=== PATIENT | female | born 1955 | race Caucasian/White ===

== ENCOUNTER 2020-10-04 15:17 | Outpatient (REF) | payer OTHER, SELFPAY ==
--- NOTE | 2020-10-04 | MM_ITS ---
EXAMINATION: MM SCREENING DIGITAL BREAST TOMOSYNTHESIS, BILATERAL CLINICAL INFORMATION: Screening. Asymptomatic. Status post left breast lumpectomy. COMPARISON: Mammography: September 29, 2019 and studies dating back to May 03, 2012 TECHNIQUE: Digital breast tomosynthesis is performed in both the craniocaudal and mediolateral oblique views along with computer-aided detection (CAD). Synthesized 2D images are generated from the tomosynthesis. Right breast exaggerated craniocaudal view also performed. FINDINGS: The breasts are heterogeneously dense, which may obscure small masses (ACR BI-RADS breast composition Category c). There are no significant masses, abnormal calcifications, or other abnormalities. MM/MM tomosynthesis screening BI IMPRESSION: There are no significant changes from prior study. ASSESSMENT: BI-RADS 1: Negative RECOMMENDATION: Routine annual mammography screening. This patient's information was entered into a reminder system with a target due date for their next mammogram.
== END 2020-10-04 15:18 | disposition home or self-care (01) ==
LOC: HO.MAMMO 15:17
PROVIDERS: PCP Internal Medicine; Visit Provider Internal Medicine
DX: Z12.31 Encounter for screening mammogram for malignant neoplasm of breast (principal)
CPT/HCPCS: 77063; 77067

== ENCOUNTER 2020-11-05 06:35 | Outpatient (REF) | payer OTHER, SELFPAY ==
[2020-11-05 07:14] LABS: COVID-19 Test Negative (Negative)
== END 2020-11-05 06:36 | disposition home or self-care (01) ==
LOC: HO.EMPCOV 06:35
PROVIDERS: Visit Provider Internal Medicine
DX: Z20.828 Contact with and (suspected) exposure to other viral communicable diseases (principal)
CPT/HCPCS: 87635; C9803

== ENCOUNTER 2020-12-19 07:09 | Outpatient (REF) | payer OTHER, SELFPAY ==
[2020-12-19 07:26] LABS: COVID-19 Test Negative (Negative)
== END 2020-12-19 07:10 | disposition home or self-care (01) ==
LOC: HO.EMPCOV 07:09
PROVIDERS: Visit Provider Internal Medicine
DX: Z20.822 Contact with and (suspected) exposure to COVID-19 (principal)
CPT/HCPCS: 36415; 87635; C9803

== ENCOUNTER 2020-12-26 07:48 | Outpatient (REF) | payer OTHER, SELFPAY ==
[2020-12-26 08:07] LABS: COVID-19 Test Negative (Negative); IDNOW Serial# 55D5AD1C
== END 2020-12-26 07:49 | disposition home or self-care (01) ==
LOC: HO.EMPCOV 07:48
PROVIDERS: Visit Provider Internal Medicine
DX: Z20.822 Contact with and (suspected) exposure to COVID-19 (principal)
CPT/HCPCS: 36415; 87635; C9803

== ENCOUNTER 2021-01-25 11:53 | Outpatient (REF) | payer OTHER, SELFPAY ==
[2021-01-25 13:10] LABS: MANUAL DIFF FLAG NO
[2021-01-25 13:17] LABS: Basophils Absolute Auto 0.1 X10*3/uL (0.0-0.2); Basophils Percent Auto 0.8 % (0-2); Eosinophils Absolute Auto 0.6 X10*3/uL (0.0-0.4); Eosinophils Percent Auto 9.3 % (0-4); Hematocrit 37.7 % (37-47); Hemoglobin 12.4 g/dl (12.0-16.0); Imm Gran Abs Auto 0.02 X10*3/uL (0.00-0.03); Imm Gran Pct Auto 0.3 % (0.0-0.4); Lymphocytes Absolute Auto 1.7 X10*3/uL (1.2-4.9); Lymphocytes Percent Auto 27.1 % (20-40); Mean Corpuscular HGB Conc 32.9 g/dl (31.0-35.0); Mean Corpuscular Volume 91.1 fL (80-98); Mean Platelet Volume 10.5 fL (9.4-12.3); Monocytes Absolute Auto 0.6 X10*3/uL (0.1-1.2); Monocytes Percent Auto 9.5 % (2-11); Neutrophils Absolute Auto 3.2 X10*3/uL (2.0-8.3); Platelet Count 227 X10*3/uL (160-400); Red Blood Count 4.14 X10*6/uL (4.20-5.50); Red Cell Distribution Width 13.2 % (11.0-16.0); White Blood Count 6.1 X10*3/uL (4.8-10.8)
[2021-01-25 13:56] LABS: Free T4 (Free Thyroxine) 0.95 ng/dL (0.71-1.85); Thyroid Stimulating Hormone 1.87 uIU/mL (0.32-4.0)
== END 2021-01-25 11:54 | disposition home or self-care (01) ==
LOC: HO.LAB 11:53
PROVIDERS: PCP Internal Medicine; Visit Provider Internal Medicine
DX: D72.819 Decreased white blood cell count, unspecified (principal); E03.9 Hypothyroidism, unspecified
CPT/HCPCS: 36415; 84439; 84443; 85025

== ENCOUNTER 2021-03-07 15:00 | Outpatient (REF) | payer OTHER, SELFPAY ==
--- NOTE | ~2021-03-07 | MM_ITS ---
EXAMINATION: BONE DENSITOMETRY CLINICAL INDICATION: Screening for osteoporosis. COMPARISON: None (current study represents initial baseline exam). TECHNIQUE: Using a [employer] DXA System (software version: 13.1) manufactured by [employer], dual-energy x-ray absorptiometry was performed of the lumbar spine and left hip. The images are of good technical quality. Summary results are attached. FINDINGS: AP SPINE L1-L4: BMD 0.850 g/cm2, Z-score -1.1, T-score -2.7, osteoporosis. LEFT FEMUR, NECK: BMD 0.805 g/cm2, Z-score -0.2, T-score -1.7, osteopenia. LEFT FEMUR, TOTAL: BMD 0.878 g/cm2, Z-score 0.2, T-score -1.0, normal. IDENTIFIED RISK FACTORS: Height loss, calcium intake, family history (parental hip fracture), history of fracture (adult), menopause. HISTORY OF FRACTURE: Lower leg. MEDICATIONS: None listed. MM/XR DEXA axial skeleton IMPRESSION: 1. DIAGNOSIS: Osteoporosis based on the lowest T-score value of -2.7 in the lumbar spine applying World Health Organization criteria. 2. 10-YEAR FRACTURE RISK PREDICTION, FRAX: Major osteoporotic fracture (clinical spine, forearm, hip or shoulder) 17.4%. Hip fracture 1.1%. 3. Treatment Recommendations: NOF guidelines recommend consideration for treatment in postmenopausal women and men age 50 and older presenting with the following: -A hip or vertebral (clinical or morphometric) fracture. -T-score less than or equal to -2.5 at the femoral neck or spine after appropriate evaluation to exclude secondary causes. -Low bone mass at the hip or spine and a 10-year fracture probability by FRAX of greater than or equal to 3% for hip fracture or greater than or equal to 20% for major osteoporotic fracture based on the [place] adapted WHO algorithm. 4. Other Recommendations: All treatment decisions require clinical judgment and consideration of individual patient factors, including patient preferences, comorbidities, previous drug use, risk factors not captured in the FRAX model (e.g. frailty, falls, vitamin D deficiency, increased bone turnover, interval significant decline in bone density) and possible under or overestimation of fracture risk by FRAX. Additional medical evaluation for secondary cause of low bone mineral density may be appropriate. FUTURE SCAN RECOMMENDATION: People with diagnosed cases of osteoporosis or at high risk for fracture should have regular bone mineral density tests. For patients eligible for Medicare, routine testing is allowed once every 2 years. The testing frequency can be increased to one year for patients who have rapidly progressing disease, those who are receiving or discontinuing medical therapy to restore bone mass, or have additional risk factors.
== END 2021-03-07 15:01 | disposition home or self-care (01) ==
LOC: HO.MAMMO 15:00
PROVIDERS: PCP Internal Medicine; Visit Provider Internal Medicine
DX: Z13.820 Encounter for screening for osteoporosis (principal); M81.0 Age-related osteoporosis without current pathological fracture; Z78.0 Asymptomatic menopausal state; Z87.81 Personal history of (healed) traumatic fracture
CPT/HCPCS: 77080

== ENCOUNTER 2021-03-20 13:28 | Outpatient (REF) | payer OTHER, SELFPAY ==
--- NOTE | ~2021-03-20 | XR_ITS ---
EXAMINATION: XR HIP, RIGHT CLINICAL INFORMATION: RIGHT HIP PAIN, ASSESS OA COMPARISON: None TECHNIQUE: AP and frog-leg lateral views of the right hip. FINDINGS: The right proximal femur, there is cortical thickening with coarsened trabeculation, extending from the level of the femoral head to the proximal femoral shaft. There is associated increased varus angulation of the right hip. These findings are most consistent with patches disease. No fractures are identified. No focal osseous lesions. Right hip joint appears relatively well-preserved. No significant joint space narrowing. Mild osteoarthritis in the pubic symphysis. 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 No acute osseous abnormality or significant osteoarthritis at the right hip.
== END 2021-03-20 13:29 | disposition home or self-care (01) ==
LOC: HO.XRAY 13:28
PROVIDERS: PCP Internal Medicine; Visit Provider Internal Medicine
DX: M25.551 Pain in right hip (principal)
CPT/HCPCS: 73502

== ENCOUNTER 2021-03-27 06:59 | Outpatient (REF) | payer OTHER, SELFPAY ==
[2021-03-27 08:59] LABS: Alanine Aminotransferase 11 U/L (0-31); Albumin Level 4.5 g/dL (3.5-5.0); Alkaline Phosphatase 100 U/L (39-117); Anion Gap 14 (12-20); Aspartate Amino Transferase 17 U/L (5-31); Bilirubin Total 0.6 mg/dL (0.0-1.0); Blood Urea Nitrogen 19 mg/dL (9-16); C Reactive Protein 0.06 mg/dL (< or = 0.50); Calcium 9.7 mg/dL (8.4-10.2); Carbon Dioxide 26 mmol/L (22-29); Chloride 104 mmol/L (96-108); Cholesterol 228 mg/dL; Estimated Glomerular Filt Rate > 60; Glucose Fasting 100 mg/dL (60-99); HDL Cholesterol 81 mg/dL; LDL Cholesterol Calculated 137 mg/dl; Potassium 4.3 mmol/L (3.3-5.1); Sodium 140 mmol/L (135-145); Total Protein 7.4 g/dL (6.5-8.0); Triglycerides 54 mg/dL
[2021-03-27 09:19] LABS: Vitamin D 25-OH Total 18.9 ng/mL (>30)
== END 2021-03-27 07:00 | disposition home or self-care (01) ==
LOC: HO.LAB 06:59
PROVIDERS: PCP Internal Medicine; Visit Provider Internal Medicine
DX: E78.00 Pure hypercholesterolemia, unspecified (principal); S82.899D Other fracture of unspecified lower leg, subsequent encounter for closed fracture with routine healing; X58.XXXD Exposure to other specified factors, subsequent encounter
CPT/HCPCS: 36415; 80053; 80061; 82306; 82550; 86140

== ENCOUNTER → 2021-03-29 06:53 | Outpatient (REF) | payer OTHER, SELFPAY ==
--- NOTE | ~2021-03-29 | NM_ITS ---
EXAMINATION: NM BONE SCAN OF THE WHOLE BODY CLINICAL INFORMATION: Assess for Paget's disease. COMPARISON: Hip film dated 03/20/2020. TECHNIQUE: Multiple gamma scintillation camera images of the whole body were performed 2.5 hours following the intravenous administration of 22 mCi Tc-99m MDP. FINDINGS: In the head, unremarkable. In the thoracic cage and upper extremities, some uptake at the base of the thumb on the right and right breast, likely degenerative in nature. In the spine, mild uptake mid cervical spine posterior on the right may be degenerative. Thoracic uptake within normal limits. Lumbosacral spine uptake within normal limits. In the pelvis, intense uptake in the right femoral head medially and junction of the femoral head with femoral neck also showing intense uptake. Otherwise more [id number] uptake extends from the intertrochanteric region down to the distal femoral metadiaphysis. In the lower extremities, otherwise mild uptake in the right knee medially is likely degenerative and some mild uptake about the left ankle and left forefoot likely degenerative. No other definite bony abnormalities are noted. The urinary bladder and faint visualization of both kidneys are noted. NM/NM bone scan whole body IMPRESSION: Uptake in the right femur. Given the appearance on x-ray this would be consistent with Paget's disease. As described, uptake is very intense in the region of the medial femoral head and subcapital femoral neck. This could just represent more acute Paget's disease however fracture superimposed on weakened bone from Paget's disease would need to be considered. If further evaluation is warranted, recommend MR for definitive evaluation. Importantly, no other focus to suggest Paget's in any other bone is seen here. Other areas described are likely degenerative in nature.
[2021-03-29 08:26] LABS: Glucose Urine UA NEG (NEG); Leukocyte Esterase Urine NEG (NEG); Nitrite Urine NEG (NEG); Specific Gravity - Urine 1.025 (1.005-1.025); Urine Blood NEG (NEG); Urine Ketones NEG (NEG); Urine Protein NEG (NEG-TRACE)
[2021-03-29 08:31] LABS: Appearance Urine CLEAR; Color Urine YELLOW
== END ==
LOC: HO.NUCMED 06:53
PROVIDERS: PCP Internal Medicine; Visit Provider Internal Medicine
DX: M54.6 Pain in thoracic spine (principal); R23.2 Flushing; R93.89 Abnormal findings on diagnostic imaging of other specified body structures
CPT/HCPCS: 78306; 81003; 87086; A9503

== ENCOUNTER 2021-04-04 15:14 | Outpatient (REF) | payer OTHER, SELFPAY ==
--- NOTE | ~2021-04-04 | MR_ITS ---
EXAMINATION: MR HIP WITHOUT CONTRAST, RIGHT CLINICAL INFORMATION: Concern for fracture. Pagetoid disease. COMPARISON: Right hip radiograph dated March 20 2021. Bone scan dated March 29, 2021. TECHNIQUE: MRI of the right hip was obtained using routine sequences on a high-field strength magnet. FINDINGS: Bones/Cartilage: Pagetoid features of the bone are appreciated. The predominant signal intensity in the proximal femur is that of fat. There are interspersed areas of low T1 and high T2 signal in the femoral head which demonstrates a speckled appearance on T1 and T2-weighted imaging which may reflect active pagetoid disease. No definable fracture line is appreciated. The right hip cartilage appears preserved. No joint space narrowing is appreciated. The sacroiliac joints are within normal limits. Mild hypertrophic changes at the pubic symphysis are appreciated. No erosion or periosteal edema. Labrum: No labral tear is identified on this non-arthrographic study. Ligament/capsule: No capsular thickening. Visualized ligaments are intact. Tendons: The hamstring origins and tendon insertions are intact. Miscellaneous: No bursal fluid is seen. The muscles are normal in signal intensity and morphology. No intraperitoneal fluid collection is seen. Uterus is anteverted. No adnexal mass. Visualized small and large bowel are normal in caliber. No inguinal hernia. No pelvic or inguinal lymphadenopathy. MR/MR hip RT wo con IMPRESSION: Right hip: Pagetoid changes in the proximal femur are noted. Predominant signal of fat signal suggest long-standing disease there are interspersed areas of low T1 and high T2 signal particularly in the femoral head which demonstrates a speckled appearance suggesting active phase disease. No definable fracture Mild hypertrophic changes at the pubic symphysis.
== END 2021-04-04 15:15 | disposition home or self-care (01) ==
LOC: HO.MRI 15:14
PROVIDERS: Visit Provider Internal Medicine
DX: M88.9 Osteitis deformans of unspecified bone (principal)
CPT/HCPCS: 73721

== ENCOUNTER 2021-04-25 13:49 | Outpatient (REF) | payer OTHER, SELFPAY ==
--- NOTE | ~2021-04-25 | XR_ITS ---
EXAMINATION: XR HAND, RIGHT CLINICAL INFORMATION: Right hand pain COMPARISON: None TECHNIQUE: PA, lateral, and oblique views of the right hand. FINDINGS: There is mild loss of first carpal- metacarpal joint space with periarticular spurring. The PIP and DIP joint spaces are normal. The MCP joints are normal. There is no visible acute fracture, dislocation or bony erosive changes. XR/XR hand RT min 3V IMPRESSION: Degenerative changes PIP and DIP joints. No visible acute fracture, dislocation or subluxation seen.
== END 2021-04-25 13:50 | disposition home or self-care (01) ==
LOC: HO.XRAY 13:49
PROVIDERS: PCP Internal Medicine; Visit Provider Internal Medicine
DX: M79.641 Pain in right hand (principal)
CPT/HCPCS: 73130

== ENCOUNTER → 2021-05-09 12:55 | Outpatient (BNVA) | payer OTHER, SELFPAY | PROVIDERS: PCP Internal Medicine; Visit Provider Student in an Organized Health Care Education/Training Program ==

== ENCOUNTER → 2021-05-15 08:58 | Outpatient (BNVA) | payer OTHER, SELFPAY | PROVIDERS: PCP Internal Medicine; Visit Provider Orthopaedic Surgery ==

== ENCOUNTER 2021-06-14 06:17 | Outpatient (REF) | payer OTHER, SELFPAY ==
[2021-06-14 09:28] LABS: Alanine Aminotransferase 14 U/L (0-31); Albumin Level 4.8 g/dL (3.5-5.0); Alkaline Phosphatase 105 U/L (39-117); Anion Gap 14 (12-20); Aspartate Amino Transferase 20 U/L (5-31); Bilirubin Total 0.7 mg/dL (0.0-1.0); Blood Urea Nitrogen 12 mg/dL (9-16); Carbon Dioxide 28 mmol/L (22-29); Chloride 103 mmol/L (96-108); Estimated Glomerular Filt Rate > 60; Glucose Random 94 mg/dL (60-115); Phosphorus 3.8 mg/dL (2.7-4.5); Potassium 4.5 mmol/L (3.3-5.1); Sodium 140 mmol/L (135-145); Total Protein 7.7 g/dL (6.5-8.0)
[2021-06-14 09:39] LABS: Vitamin D 25-OH Total 31.2 ng/mL (>30)
[2021-06-18 17:52] LABS: Collagen Type I C-Telopeptide 712 pg/mL (see note)
[2021-06-19 18:51] LABS: N-Telopeptide 169 (see note); NTXCreaRU 103 mg/dL (20-275)
== END 2021-06-14 06:18 | disposition home or self-care (01) ==
LOC: HO.LAB 06:17
PROVIDERS: PCP Internal Medicine; Visit Provider Student in an Organized Health Care Education/Training Program
DX: M88.9 Osteitis deformans of unspecified bone (principal)
CPT/HCPCS: 36415; 80053; 82306; 82523; 84100

== ENCOUNTER 2021-06-21 12:22 | Outpatient (REF) | payer OTHER, SELFPAY | END 2021-06-21 12:23 | disposition home or self-care (01) | LOC: HO.MDS 12:22 | PROVIDERS: PCP Internal Medicine; Visit Provider Student in an Organized Health Care Education/Training Program | DX: M88.9 Osteitis deformans of unspecified bone (principal) | CPT/HCPCS: 96365; J3489 ==

== ENCOUNTER 2021-07-08 07:30 | Outpatient (REF) | payer OTHER, SELFPAY | END 2021-07-08 07:31 | disposition home or self-care (01) | LOC: HO.LAB 07:30 | PROVIDERS: Visit Provider Internal Medicine | DX: Z20.822 Contact with and (suspected) exposure to COVID-19 (principal) | CPT/HCPCS: C9803; U0003; U0005 ==

== ENCOUNTER 2021-07-09 12:44 | Outpatient (REF) | payer OTHER, SELFPAY ==
[2021-07-09 13:38] LABS: Influenza A PCR NEGATIVE (Negative); Influenza B PCR NEGATIVE (Negative); Resp Syncy Virus RNA Qual PCR NEGATIVE (Negative); SARS COV2 PCR INHOUSE NEGATIVE (Negative)
== END 2021-07-09 12:45 | disposition home or self-care (01) ==
LOC: HO.LAB 12:44
PROVIDERS: Visit Provider Internal Medicine
DX: Z20.822 Contact with and (suspected) exposure to COVID-19 (principal)
CPT/HCPCS: 0241U; 36415; C9803

== ENCOUNTER 2021-10-28 07:44 | Outpatient (REF) | payer OTHER, SELFPAY ==
--- NOTE | ~2021-10-28 | MM_ITS ---
EXAMINATION: MM SCREENING DIGITAL BREAST TOMOSYNTHESIS, BILATERAL CLINICAL INFORMATION: Screening. Asymptomatic. History left lumpectomy ([facility], [facility]) 2017. The lifetime risk of breast cancer based on the Tyrer-Cuzick Model is 42%. COMPARISON: Mammography: 10/04/2020, 09/29/2019, 09/17/2018 TECHNIQUE: Digital breast tomosynthesis is performed in both the craniocaudal and mediolateral oblique views along with computer-aided detection (CAD). Synthesized 2D images are generated from the tomosynthesis. FINDINGS: There are scattered areas of fibroglandular density (ACR BI-RADS breast composition Category b). Breast tissue composition borders on heterogeneously dense. There are no significant masses, abnormal calcifications, or other abnormalities. Parenchymal pattern is similar to prior studies. There there are minor shifting fibroglandular densities from year to year related to positioning. No developing density. Biopsy clip marker again noted posterior 4:00 left breast. No significant changes. MM/MM tomosynthesis screening BI IMPRESSION: No significant changes from prior exams. ASSESSMENT: BI-RADS 2: Benign RECOMMENDATION: Routine annual mammography screening. This patient's information was entered into a reminder system with a target due date for their next mammogram.
== END 2021-10-28 07:45 | disposition home or self-care (01) ==
LOC: HO.MAMMO 07:44
PROVIDERS: Visit Provider Internal Medicine
DX: Z12.31 Encounter for screening mammogram for malignant neoplasm of breast (principal)
CPT/HCPCS: 77063; 77067

== ENCOUNTER → 2021-12-23 10:56 | Outpatient (REF) | payer OTHER, SELFPAY ==
--- NOTE | ~2021-12-23 | NM_ITS ---
EXAMINATION: NM BONE SCAN OF THE WHOLE BODY CLINICAL INFORMATION: Right hip pain. Follow-up Paget's disease. COMPARISON: Bone scan 03/29/2021. TECHNIQUE: Multiple gamma scintillation camera images of the whole body were performed 3 hours following the intravenous administration of 22 mCi Tc-99m MDP. FINDINGS: In the head, no abnormal uptake seen. In the thoracic cage and upper extremities, no abnormal activity seen within the thoracic cage or the upper extremity. There is extravasation of isotope in the right elbow at the site of injection. In the spine, no abnormal uptake seen within the spine. In the pelvis, there is minimal activity seen within the right hip joint, significantly improved since 03/29/2021. No additional abnormal activity seen. In the lower extremities, unremarkable. No other definite bony abnormalities are noted. The urinary bladder and faint visualization of both kidneys are noted. NM/NM bone scan whole body IMPRESSION: Significant improvement in the hypermetabolic activity in the right head of the femur from previous exam 03/29/2021. There is now mild increased activity in the head of the right femur. The rest of the whole body bone scan is unremarkable.
== END ==
LOC: HO.NUCMED 10:56
PROVIDERS: Visit Provider Internal Medicine Rheumatology
DX: Q78.2 Osteopetrosis (principal)
CPT/HCPCS: 78306; A9503

== ENCOUNTER 2022-01-17 10:26 | Outpatient (REF) | payer OTHER, SELFPAY ==
--- NOTE | ~2022-01-17 | CT_ITS ---
EXAMINATION: CT ABDOMEN AND PELVIS WITHOUT CONTRAST CLINICAL INFORMATION: Left-sided abdominal pain. COMPARISON: None TECHNIQUE: Multidetector volumetric imaging was performed from the superior aspect of the liver through the pubic symphysis. Sagittal and coronal reformatted images were obtained on the technologist's workstation. This CT examination was performed using dose optimization techniques as appropriate, variously including the following: *Automated exposure control *Adjustment of mA and/or kV according to patient size (this includes techniques or standardized protocols for targeted exams where dose is matched to indication/reason for exam; i.e. extremities or head) *Use of iterative reconstruction technique DLP: 465 mGy-cm FINDINGS: LUNG BASES: The visualized lung bases are unremarkable. LIVER, GALLBLADDER, AND BILIARY TREE: The liver is normal in size, shape, and attenuation. No focal hepatic lesion or biliary ductal dilatation is present. The gallbladder is unremarkable with no evidence of radiopaque gallstones, gallbladder wall thickening, or obvious pericholecystic inflammatory changes. PANCREAS: Unremarkable. SPLEEN: Unremarkable. ADRENAL GLANDS: Unremarkable. KIDNEYS AND URETERS: The kidneys are normal in size, shape, and attenuation. No hydronephrosis, hydroureter, or calculi seen. No perinephric stranding. BLADDER: Unremarkable. GASTROINTESTINAL TRACT: There is scattered moderate stool and gas seen throughout the colon without any significant distention. The small-bowel loops are normal caliber. The appendix is not visualized. ABDOMINAL WALL: No significant hernia is appreciated. LYMPH NODES: Normal. VASCULAR: Unremarkable. PELVIC VISCERA: Unremarkable. OSSEOUS STRUCTURES: Unremarkable. CT/CT abdomen pelvis wo con IMPRESSION: Mild to moderate constipation. No obstruction or diverticula seen. No radiopaque urolith or hydroureteronephrosis. Fleischner guidelines were followed.
== END 2022-01-17 10:27 | disposition home or self-care (01) ==
LOC: HO.CT 10:26
PROVIDERS: PCP Internal Medicine; Visit Provider Internal Medicine
DX: R10.9 Unspecified abdominal pain (principal)
CPT/HCPCS: 74176

== ENCOUNTER 2022-09-25 09:08 | Outpatient (REF) | payer MEDICARE, SELFPAY ==
[2022-09-25 10:48] LABS: MANUAL DIFF FLAG NO
[2022-09-25 11:00] LABS: Basophils Absolute Auto 0.1 X10*3/uL (0.0-0.2); Basophils Percent Auto 1.1 % (0-2); Eosinophils Absolute Auto 0.3 X10*3/uL (0.0-0.4); Eosinophils Percent Auto 7.3 % (0-4); Hematocrit 38.3 % (37.0-47.0); Hemoglobin 12.8 g/dl (12.0-16.0); Imm Gran Abs Auto 0.01 X10*3/uL (0.00-0.03); Imm Gran Pct Auto 0.2 % (0.0-0.4); Lymphocytes Absolute Auto 1.4 X10*3/uL (1.2-4.9); Lymphocytes Percent Auto 31.7 % (20-40); Mean Corpuscular HGB Conc 33.4 g/dl (31.0-35.0); Mean Corpuscular Hemoglobin 30.7 pg (27.0-33.0); Mean Corpuscular Volume 91.8 fL (80.0-98.0); Mean Platelet Volume 10.2 fL (9.4-12.3); Monocytes Absolute Auto 0.4 X10*3/uL (0.1-1.2); Monocytes Percent Auto 8.9 % (2-11); Neutrophils Absolute Auto 2.2 x10*3/uL (2.0-8.3); Neutrophils Percent Auto 50.8 % (45-73); Platelet Count 207 X10*3/uL (160-400); Red Blood Count 4.17 X10*6/uL (4.20-5.50); Red Cell Distribution Width 12.9 % (11.0-16.0); White Blood Count 4.4 X10*3/uL (4.8-10.8)
[2022-09-25 11:46] LABS: Free T4 (Free Thyroxine) 0.98 ng/dL (0.71-1.85); Thyroid Stimulating Hormone 2.67 uIU/mL (0.32-4.0)
[2022-09-25 11:48] LABS: Alanine Aminotransferase 15 U/L (0-31); Albumin Level 4.6 g/dL (3.5-5.0); Alkaline Phosphatase 51 U/L (39-117); Anion Gap 17 (12-20); Aspartate Amino Transferase 23 U/L (5-31); Bilirubin Total 0.6 mg/dL (0.0-1.0); Blood Urea Nitrogen 12 mg/dL (9-16); Calcium 9.5 mg/dL (8.4-10.2); Carbon Dioxide 25 mmol/L (22-29); Chloride 102 mmol/L (96-108); Cholesterol 262 mg/dL; Estimated Glomerular Filt Rate > 60; Glucose Fasting 88 mg/dL (60-99); HDL Cholesterol 73 mg/dL; LDL Cholesterol Calculated 174 mg/dl; Magnesium 1.9 mg/dL (1.6-2.6); Potassium 4.2 mmol/L (3.3-5.1); Sodium 140 mmol/L (135-145); Total Protein 7.6 g/dL (6.5-8.0); Triglycerides 76 mg/dL
== END 2022-09-25 09:09 | disposition home or self-care (01) ==
LOC: HO.10HDL 09:08
PROVIDERS: Visit Provider Internal Medicine
DX: Z00.00 Encounter for general adult medical examination without abnormal findings (principal); E03.9 Hypothyroidism, unspecified
CPT/HCPCS: 36415; 80053; 80061; 83735; 84439; 84443; 85025

== ENCOUNTER 2022-10-30 07:28 | Outpatient (REF) | payer MEDICARE, SELFPAY ==
--- NOTE | ~2022-10-30 | MM_ITS ---
EXAMINATION: MM SCREENING DIGITAL BREAST TOMOSYNTHESIS, BILATERAL CLINICAL INFORMATION: Screening. Asymptomatic. The lifetime risk of breast cancer based on the Tyrer-Cuzick Model is 40%. Additional annual screening with breast MRI may be of benefit in women with a score of 20% or greater. COMPARISON: Mammography: October 28, 2021 and studies dating back to February 15, 2016 TECHNIQUE: Digital breast tomosynthesis is performed in both the craniocaudal and mediolateral oblique views along with computer-aided detection (CAD). Synthesized 2D images are generated from the tomosynthesis. FINDINGS: The breasts are heterogeneously dense, which may obscure small masses (ACR BI-RADS breast composition Category c). There are no significant masses, abnormal calcifications, or other abnormalities. MM/MM tomosynthesis screening BI IMPRESSION: No significant changes from prior exam. ASSESSMENT: BI-RADS 1: Negative RECOMMENDATION: Routine annual mammography screening. This patient's information was entered into a reminder system with a target due date for their next mammogram.
== END 2022-10-30 07:29 | disposition home or self-care (01) ==
LOC: HO.MAMMO 07:28
PROVIDERS: PCP Internal Medicine; Visit Provider Internal Medicine
DX: Z12.31 Encounter for screening mammogram for malignant neoplasm of breast (principal)
CPT/HCPCS: 77063; 77067

== ENCOUNTER 2023-12-25 09:37 | Outpatient (REF) | payer MEDICARE, SELFPAY ==
--- NOTE | ~2023-12-25 | MM_ITS ---
EXAMINATION: BONE DENSITOMETRY CLINICAL INDICATION: Age-related osteoporosis. COMPARISON: Baseline BD dated 03/07/2021. TECHNIQUE: Using a [employer] DXA System (software version: 13.1) manufactured by [employer], dual-energy x-ray absorptiometry was performed of the lumbar spine and left hip. The images are of good technical quality. Summary results are attached. FINDINGS: LEFT FEMUR, NECK: Current: BMD 0.835 g/cm2, Z-score 0.2, T-score -1.5, osteopenia. Baseline: BMD 0.805 g/cm2. LEFT FEMUR, TOTAL: Current: BMD 0.928 g/cm2, Z-score 0.7, T-score -0.6, normal, 5.7% increase from baseline (<5% change is not significant). Baseline: BMD 0.878 g/cm2. AP SPINE L1-L4: Current: BMD 0.867 g/cm2, Z-score -0.9, T-score -2.6, osteoporosis, 2.0% increase from baseline (<5% change is not significant). Baseline: BMD 0.850 g/cm2. IDENTIFIED RISK FACTORS: Family history (parent hip fracture), history of fracture (adult), low body weight, menopause, osteoporosis. HISTORY OF FRACTURE: Other. MEDICATIONS: Calcium, vitamin D, bisphosphonate. MM/XR DEXA axial skeleton IMPRESSION: 1. DIAGNOSIS: Osteoporosis based on the lowest T-score value of -2.6 in the lumbar spine applying World Health Organization criteria. 2. 10-YEAR FRACTURE RISK PREDICTION, FRAX: According to the guidelines, FRAX calculation should only be performed on patients in the osteopenia bone density category. Therefore, FRAX was not performed on this patient. 3. Treatment Recommendations: NOF guidelines recommend consideration for treatment in postmenopausal women and men age 50 and older presenting with the following: -A hip or vertebral (clinical or morphometric) fracture. -T-score less than or equal to -2.5 at the femoral neck or spine after appropriate evaluation to exclude secondary causes. -Low bone mass at the hip or spine and a 10-year fracture probability by FRAX of greater than or equal to 3% for hip fracture or greater than or equal to 20% for major osteoporotic fracture based on the [place] adapted WHO algorithm. 4. Other Recommendations: All treatment decisions require clinical judgment and consideration of individual patient factors, including patient preferences, comorbidities, previous drug use, risk factors not captured in the FRAX model (e.g. frailty, falls, vitamin D deficiency, increased bone turnover, interval significant decline in bone density) and possible under or overestimation of fracture risk by FRAX. Additional medical evaluation for secondary cause of low bone mineral density may be appropriate. FUTURE SCAN RECOMMENDATION: People with diagnosed cases of osteoporosis or at high risk for fracture should have regular bone mineral density tests. For patients eligible for Medicare, routine testing is allowed once every 2 years. The testing frequency can be increased to one year for patients who have rapidly progressing disease, those who are receiving or discontinuing medical therapy to restore bone mass, or have additional risk factors.
== END 2023-12-25 09:38 | disposition home or self-care (01) ==
LOC: HO.MAMMO 09:37
PROVIDERS: PCP Internal Medicine; Visit Provider Obstetrics & Gynecology Gynecology
DX: Z13.820 Encounter for screening for osteoporosis (principal); Z78.0 Asymptomatic menopausal state; M81.0 Age-related osteoporosis without current pathological fracture
CPT/HCPCS: 77080

== ENCOUNTER 2024-01-08 11:48 | Outpatient (REF) | payer MEDICARE, SELFPAY ==
--- NOTE | ~2024-01-08 | MM_ITS ---
EXAMINATION: MM SCREENING DIGITAL BREAST TOMOSYNTHESIS, BILATERAL CLINICAL INFORMATION: Screening. Asymptomatic. COMPARISON: Mammography: This study is compared with prior exams dating back to 2019. TECHNIQUE: Digital breast tomosynthesis is performed in both the craniocaudal and mediolateral oblique views along with computer-aided detection (CAD). Synthesized 2D images are generated from the tomosynthesis. FINDINGS: There are scattered areas of fibroglandular density (ACR BI-RADS breast composition Category b). There are no significant masses, abnormal calcifications, or other abnormalities. There is a biopsy tissue marker in the upper outer quadrant of the left breast. MM/MM tomosynthesis screening BI IMPRESSION: No mammographic evidence of malignancy. ASSESSMENT: BI-RADS BI-RADS 2 - Benign Findings RECOMMENDATION: Routine annual mammography screening. 1 year F/U This examination should not preclude the clinical evaluation of a suspicious palpable abnormality. This patient's information was entered into a reminder system with a target due date for their next mammogram.
== END 2024-01-08 11:49 | disposition home or self-care (01) ==
LOC: HO.MAMMO 11:48
PROVIDERS: PCP Internal Medicine; Visit Provider Internal Medicine
DX: Z12.31 Encounter for screening mammogram for malignant neoplasm of breast (principal)
CPT/HCPCS: 77063; 77067

== ENCOUNTER → 2024-01-08 12:00 | Outpatient (BNV) | payer MEDICARE, SELFPAY | PROVIDERS: PCP Internal Medicine; Visit Provider Radiology Diagnostic Radiology | DX: Z12.31 Encounter for screening mammogram for malignant neoplasm of breast (principal) | CPT/HCPCS: 77063; 77067 ==

== ENCOUNTER 2024-07-08 09:52 | Outpatient (REF) | payer MEDICARE, SELFPAY ==
--- NOTE | ~2024-07-08 | XR_ITS ---
EXAMINATION: XR CERVICAL SPINE CLINICAL INFORMATION: Right-sided neck pain, shoulder pain, rule out degenerative disc disease COMPARISON: March 30, 2018 TECHNIQUE: 2 views of the cervical spine FINDINGS: Diffuse demineralization. Reversal of the normal cervical lordosis. Multilevel cervical spondylosis with loss of disc space height most notable at C5-C6, but also noticeable at C4-C5 and C6-C7. XR/XR cervical spine 2V IMPRESSION: Multilevel cervical spondylosis most notable at C5-C6. Electronically signed by: Melba Knox MD 08/24/2024 06:43 AM EDT
[2024-07-08 13:10] LABS: MANUAL DIFF FLAG NO
[2024-07-08 13:15] LABS: Basophils Absolute Auto 0.1 X10*3/uL (0.0-0.2); Basophils Percent Auto 1.5 % (0-2); Eosinophils Absolute Auto 0.3 X10*3/uL (0.0-0.4); Eosinophils Percent Auto 6.9 % (0-4); Hematocrit 39.2 % (37.0-47.0); Hemoglobin 12.9 g/dl (12.0-16.0); Imm Gran Abs Auto 0.02 X10*3/uL (0.00-0.03); Imm Gran Pct Auto 0.5 % (0.0-0.4); Lymphocytes Absolute Auto 1.1 X10*3/uL (1.2-4.9); Lymphocytes Percent Auto 27.3 % (20-40); Mean Corpuscular HGB Conc 32.9 g/dl (31.0-35.0); Mean Corpuscular Hemoglobin 30.4 pg (27.0-33.0); Mean Corpuscular Volume 92.2 fL (80.0-98.0); Mean Platelet Volume 10.1 fL (9.4-12.3); Monocytes Absolute Auto 0.4 X10*3/uL (0.1-1.2); Monocytes Percent Auto 9.9 % (2-11); Neutrophils Absolute Auto 2.2 x10*3/uL (2.0-8.3); Neutrophils Percent Auto 53.9 % (45-73); Platelet Count 223 X10*3/uL (160-400); Red Blood Count 4.25 X10*6/uL (4.20-5.50); Red Cell Distribution Width 13.2 % (11.0-16.0); White Blood Count 4.1 X10*3/uL (4.8-10.8)
[2024-07-08 13:33] LABS: Alanine Aminotransferase 15 U/L (0-31); Albumin Level 4.5 g/dL (3.5-5.0); Alkaline Phosphatase 44 U/L (39-117); Anion Gap 12 (12-20); Aspartate Amino Transferase 16 U/L (5-31); Bilirubin Total 0.5 mg/dL (0.0-1.0); Blood Urea Nitrogen 10 mg/dL (9-16); Calcium 10.1 mg/dL (8.4-10.2); Carbon Dioxide 28 mmol/L (22-29); Chloride 105 mmol/L (96-108); Cholesterol 241 mg/dL (<200); Estimated Glomerular Filt Rate > 60; Glucose Fasting 99 mg/dL (60-99); HDL Cholesterol 78 mg/dL (>40); LDL Cholesterol Calculated 146 mg/dL (<100); Potassium 4.5 mmol/L (3.3-5.1); Sodium 140 mmol/L (135-145); Total Protein 7.6 g/dL (6.5-8.0); Triglycerides 87 mg/dL (<150)
[2024-07-08 13:50] LABS: Free T4 (Free Thyroxine) 0.95 ng/dL (0.71-1.85); Thyroid Stimulating Hormone 2.39 uIU/mL (0.32-4.0)
== END 2024-07-08 09:53 | disposition home or self-care (01) ==
LOC: HO.HMGCX 09:52
PROVIDERS: PCP Internal Medicine; Visit Provider Internal Medicine
DX: M54.2 Cervicalgia (principal); M25.511 Pain in right shoulder; E78.00 Pure hypercholesterolemia, unspecified; E03.9 Hypothyroidism, unspecified
CPT/HCPCS: 36415; 72040; 80053; 80061; 84439; 84443; 85025

== ENCOUNTER 2025-01-13 13:24 | Outpatient (REF) | payer MEDICARE, SELFPAY ==
--- OUTSIDE RECORDS SUMMARY | 2025-01-13 13:36 | XMS_ITS ---
Author Organization [facility] Address [address] [facility] [address] [place] [address] Care Team Providers Care Store Receiving Specialist Name Role Phone GISEL WINTER M.D. Primary Care Provider Verena Blanca [phone] REASON FOR VISIT ? STOPPING YUVAFEM Encounters Encounter Location Date Provider Diagnosis [facility] [address] [address] 08/05/2024 Verena García Plan Of Treatment Next Appt Details Provider Name:Verena beltre, 11/01/2025 10:40:00 AM, [address] [place] [address], [place], [id number], Progress Notes * DOROTEO BERGMANDOB:[birth year] (69 yo F)Acc No.[id number]:08/05/2024 Patient:?DOROTEO BERGMAN :1955???Age:69 Y???Sex:Female Address:[address] [place] [address], [phone] * true * Date:? Generated for Lizeti javier/Bobo/eTransmitting on:?01/13/2025 01:36 PM EST
--- OUTSIDE RECORDS SUMMARY | 2025-01-13 13:36 | XMS_ITS ---
Author Organization [employer] [facility] Address [address] [place] [address] [address] [place] [address] Care Team Providers Care Boiler Technician Name Role Phone GISEL WITNER M.D. Primary Care Provider Arash García Verena Unavailable [phone] Allergies Allergen (clinical drug ingredient) Drug/Non Drug Allergy documented on EMR Reaction Allergy Type Onset Date Status Substance with sulfonamide structure and antibacterial mechanism of action (substance) Sulfa Antibiotics Unknown Drug Allergy Active Results Component Value Reference Range Notes Urinalysis Reviewed date:10/21/2023 12:09:41 PM Interpretation: Performing Lab: Notes/Report: NITRITE Neg PH 8.0 PROTEIN Trace S.G 1.005 WBC Trace GLUCOSE Neg KETONES Neg UROBILINOGEN Neg BILIRUBIN Neg BLOOD Neg COMPLETE URINALYSIS Reviewed date:10/24/2023 02:07:30 PM Interpretation: Performing Lab:Testing performed or reported by [facility], a Service of [facility], [address] [place] [address] Fortunato Shelley MD, Triage Nurse [facility]# [id number] Notes/Report: APPEAR/COLOR LIGHT YELLOW CLEAR SP. GRAVITY 1.010 (1.002-1.030) URINE PH 7.0 (5.0-8.0) URINE ALBUMIN NEGATIVE (NEG) URINE GLUCOSE NEGATIVE (NEG) URINE KETONES NEGATIVE (NEG) URINE BILIRUBIN NEGATIVE (NEG) URINE HEMOGLOBIN NEGATIVE (NEG) URINE NITRITE NEGATIVE (NEG) URINE LEUKOCYTE NEGATIVE (NEG) UROBILINOGEN NORMAL (NORM) MG/DL URINE WBCs 1 (0-5) /HPF URINE RBCs 1 (0-3) /HPF MUCUS SLIGHT SQUAMOUS EPITH <1 (0-8) /HPF URINE CULTURE Reviewed date:10/24/2023 02:07:14 PM Interpretation: Performing Lab:Testing performed or reported by [facility], a Service of [facility], [place] [address] Fortunato Shelley MD, Triage Nurse [facility]# [id number] Notes/Report: SPECIMEN DESCRIPTION URINE SPECIAL REQUESTS NONE CULTURE NO GROWTH REPORT STATUS FINAL 10/22/2023 REASON FOR VISIT 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, 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 60-85+ Medications Medication SIG (Take, Route, Frequency, Duration) Notes Start Date End Date Status Levothyroxine Sodium 25 MCG TAKE 1 TABLE T BY MOUTH DAILY Oral for 90 Active Yuvafem 10 MCG 1 tablet Vaginal Two times a Week for 90 days 10/16/2022 Active Yuvafem 10 MCG 1 tablet Vaginal ONC E A WEEK for 90 days 10/21/2023 Active Calcium + D3 Active Social History Tobacco Use: Social History Observation Description Date Details (start date - stop date) Never Smoker NA - NA Tobacco Use/Smoking Question Answer Notes Are you a nonsmoker Alcohol Screen (Audit-C) Question Answer Notes Did you have a drink contain ing alcohol in the past year? Yes How often did you have a dri nk containing alcohol in the past year? 2 to 3 times a week (3 points) How many drinks did you have on a typical day when you were drinking in the past year? 1 or 2 drinks (0 point) Points 3 Interpretation Positive Sexual History Question Answer Notes Had sex in the past 12 months (vaginal, oral, or anal)? 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 10/21/2023 Age-related osteoporosis without current pathological fracture (ICD-10 - M81.0) DISCUSSED OSTEOPOROSIS AND ITS IMPACT ON HER HEALTH. ADEQUATE CALCIUM AND VIT D. WEIGHT BEARING EXERCISES. OSTEO PRECAUTIONS. REPEAT BMD THIS YEAR. 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 BENEFITS AND RISKS WERE DISCUSSED AND SHE ACCEPTS RISKS. 10/21/2023 Family history of malignant neoplasm of digestive organs (ICD-10 - Z80.0) PAT'S BROTHERS WITH COLON CA ARE BURLESON MUTATION NEGATIVE. COLONOSCOPY WAS RECOMMENDED. 10/21/2023 Encounter for gynecological examination (general) (routine) without abnormal findings (ICD-10 - Z01.419) NO PAP TEST, DUE IN 2024. Plan Of Treatment Medication Medication Name Sig Start Date Stop Date Notes Yuvafem 10 MCG 1 tablet Vaginal ONCE A WEEK for 90 days Treatment Notes Assessment Notes Encounter for screening mamm ogram for malignant neoplasm of breast REGULAR MAMMOGRAMS AND SBE'S WERE RECOMMENDED. Age-related osteoporosis wit hout current pathological fracture DISCUSSED OSTEOPOROSIS AND ITS IMPACT ON HER HEALTH. ADEQUATE CALCIUM AND VIT D. WEIGHT BEARING EXERCISES. OSTEO PRECAUTIONS. REPEAT BMD THIS YEAR. 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 BENEFITS AND RISKS WERE DISCUSSED AND SHE ACCEPTS RISKS. Family history of malignant neoplasm of digestive organs PAT'S BROTHERS WITH COLON CA ARE BURLESON MUTATION NEGATIVE. COLONOSCOPY WAS RECOMMENDED. Encounter for gynecological examination (general) (routine) without abnormal findings NO PAP TEST, DUE IN 2024. Pending Test Test Name Order Date MAMMOGRAM, SCREENING 10/21/2023 BONE DENSITY 10/21/2023 MM Digital Mammo Screening 10/21/2023 Next Appt Details Follow Up: 1 Year, Reason: Provider Name:Verena beltre, 11/01/2025 10:40:00 AM, [address], [address], [place], [address], Progress Notes * DOROTEO BERGMANDOB:[birth year] (69 yo F)Acc No.[id number]:10/21/2023 PROGRESS NOTES Patient:?DOROTEO BERGMAN Appointment Provider:?Verena beltre M.D. :1955???Age:68 Y???Sex:Female D ate:10/21/2023 Address:[address] [place], [place] [id number] Pcp:GISEL WINTER M.D. Subjective: * Chief Complaints: * ???1. 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 2 . 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 * HPI: ???New/Follow-up Patient Consult:? 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 THEY ARE NOT SEXUALLY ACTIVE. HER HAS CANCER AND IS SEEN AT [facility] Q 2 WEEKS. SHE ENTERED MENOPAUSE AT AGE 52. SHE USES YUVAFEM FOR ATROPHIC VAGINITIS. SHE HAD LCIS IN 2017 AND WAS ADVISED TAMOXIFEN BUT SHE REFUSED. SHE HAS A HX OF PAGET'S DISEASE OF THE RIGHT FEMORAL NECK AND SEES AN ORTHOPEDIC SURGEON. SHE SEES A CUTTER HELPER FOR OSTEOPOROSIS. HER LAST BMD IN 2020 SHOWED THE LOWEST T-SCORE TO BE -[facility].7 [facility]. SHE HAS RECEIVED 3 DOSES OF RECLAST AND [facility]. HER SISTER HAD BREAST CA AND 2 BROTHERS HAD COLON CA. THEY ARE BURLESON NEGATIVE. HER LAST MAMMOGRAM DONE IN 2021 SHOWED BREASTS ARE NOT DENSE AND WAS NORMAL. HER LAST PAP TEST IN 2020 WAS NEGATIVE AND HPV NEGATIVE. SHE HAD A COLONOSCOPY DONE IN [address] VALLEJO IN [place]. SHE IS DUE FOR ANOTHER ONE. PFIZER X 2, MODERNA X 1. ???Annual:? Patient presents for annual exam, ages 60-85, postmenopausal. ?General Health Maintenance:?Current breast complaints:?no breast pain, mass, discharge, or skin changes ?Urinary problems:?patient reports no urinary health problems or bowel health problems ?Calcium intake:?takes adequate calcium via diet and supplementation ?Significant TITLE ONE READING TEACHER problems:?no significant bone char kiln operator symptoms or problems * ROS:?general:?no?chest pain.?no?palpitations.?no?headache.?no?cough.?no?shortness of breath.?no?fever.?no?unexplained weight loss.?no?nausea/vomiting.?no?change in bowel movements.?no blood in stool.?no?genitourinary complaints.?no?skin complaints.? 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 * Manager Rn History:?/ Para?3/3.?Sexual activity?currently sexually active.?Last Pap Smear:?05/15/21 NIL, NEG HPV, 2015.?Mammogram:?10/2022 [place], 10/2021 [facility], 2019.?Abnormal Pap Smear:?no history of abnormal pap smears.?LMP and menses?[place].?History of STD's:?none.?Menopause: ?Began at age: ?52 ???Colonoscopy?2017.?Bone Density:?03/07/21.? * OB History:?Total pregnancies?3.?Total living children?3.?(s)?3.? * Surgical History:? x 3 1981, 1984, 1986, Colonoscopy , Left Breast Biopsy . * Hospitalization/Major Diagno stic Procedure:?See Surgical Hx . * Family History:?Mother: charlotte woodruff, Well.?Father: , Coronary Artery Disease, Mini Stroke.? Sister: alive, breast cancer. * Social History:?Tobacco Use:?Tobacco Use/Smoking?Are you a?nonsmoker ???Sexual History:?Sexual History?Had sex in the past 12 months (vaginal, oral, or anal)??Yes ?with?Men only ?Prevention strategies discussed:?Other ?Details of Sexual History?Are you sexually active??Yes ???Drugs/Alcohol:?Drugs?Have you used drugs other than those for medical reasons in the past 12 months??No ?Alcohol Screen (Audit-C)?Did you have a drink containing alcohol in the past year??Yes ?How often did you have a drink containing alcohol in the past year??2 to 3 times a week (3 points) ?How many drinks did you have on a typical day when you were drinking in the past year??1 or 2 drinks (0 point) ?Points?3 ?Interpretation?Positive ???Miscellaneous:?Children: yes, 3. ?Exercise: yes, stationary bike. ?Living with: spouse. ?Marital status: . ?Natural support system: yes. ?Occupation: Retired. ?Sexually active: yes, monogamous relationship. * Medications:?Taking Calcium + D3 , Taking Levothyroxine Sodium 25 MCG Tablet TAKE 1 TABLET BY MOUTH DAILY Oral , Taking Yuvafem 10 MCG Tablet 1 tablet Vaginal Two times a Week , Discontinued Vitamin D3 25 MCG (1000 UT) Capsule 1 capsule Orally Once a day , Discontinued Vagifem 10 MCG Tablet 1 tablet Vaginal Three x times a Week , Medication List reviewed and reconciled with the patient * Allergies:?Sulfa Antibiotics : Allergy. Objective: * Vitals:?Ht: 62.75 in, Wt:132 lbs, BMI:23.57Index, BP:118/80mm Hg, Temp:97.9F. * Examination: ???General Exam: ?CONSTITUTIONAL:?NECK/THYROID:?RESPIRATORY:?Auscultation: clear to auscultation bilaterally, Respiratory Effort: normal.?CARDIOVASCULAR:?Auscultation: regular rate and rhythm.?BREAST, Right:?BREAST, Left:?GASTROINTESTINAL:?MUSCULOSKELETAL:?SKIN:?NEURO/PSYCH:?Genitourinary: ?EXTERNAL GENITALIA:?VAGINA:?BLADDER:?URETHRA:?CERVIX:?UTERUS:?ADNEXA:?ANUS AND PERINEUM:? 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 Plan: * Treatment: 2.?Encounter for screening m ammogram for malignant neoplasm of breast?Imaging: MM Digital Mammo Screening Notes: REGULAR MAMMOGRAMS AND SBE'S WERE RECOMMENDED.?? 3.?Age-related osteoporosis without current pathological fracture? Notes: DISCUSSED OSTEOPOROSIS AND ITS IMPACT ON HER HEALTH. ADEQUATE CALCIUM AND VIT D. WEIGHT BEARING EXERCISES. OSTEO PRECAUTIONS. REPEAT BMD THIS YEAR.?? 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 Notes: CONTINUE VOLLOW UP AT [facility]?? 5.?Postmenopausal atrophic v aginitis? Start Yuvafem Tablet, 10 MCG, 1 tablet, Vaginal, ONCE A WEEK, 90 days, 12 Tablet, Refills 4.?? Notes: CONITNUE YUVAFEM. BENEFITS AND RISKS WERE DISCUSSED AND SHE ACCEPTS RISKS.?? 6.?Family history of maligna nt neoplasm of digestive organs? Notes: ALEX'S BROTHERS WITH COLON CA ARE BURLESON MUTATION NEGATIVE. COLONOSCOPY WAS RECOMMENDED.?? * Imaging:? * ?Imaging: BONE DENSITY ?Imaging: MAMMOGRAM, SCREENING* * Labs:? * ?Lab: Urinalysis (Collec tion Date & Time - 10/21/2023) ? Value Reference Range ?NITRITE Neg * ?PH 8.0 * ?PROTEIN Trace * ?S.G 1.005 * ?WBC Trace * ?GLUCOSE Neg * ?KETONES Neg * ?UROBILINOGEN Neg * ?BILIRUBIN Neg * ?BLOOD Neg * D.ROD 10/21/2023 11:28:44 AM > U/A and Urine C&S Sent ?Lab: URINE CULTURE (Collection Date & Time - 10/21/2023 11:30 AM)* ? Value Reference Range ?CULTURE NO GROWTH - * ?REPORT STATUS FINAL 10/22/2023 - * ?SPECIAL REQUESTS NONE - * ?SPECIMEN DESCRIPTION URINE - ?Lab: COMPLETE URINALYSIS (Collection Date & Time - 10/21/2023 11:30 AM)* ? Value Reference Range ?APPEAR/COLOR LIGHT YELLOW - * ?SP. GRAVITY 1.010 (1.002-1.03 0) - * ?URINE PH 7.0 (5.0-8.0) - * ?URINE ALBUMIN NEGATIVE (NEG) - * ?URINE GLUCOSE NEGATIVE (NEG) - * ?URINE KETONES NEGATIVE (NEG) - * ?URINE BILIRUBIN NEGATIVE (NEG) - * ?URINE HEMOGLOBN NEGATIVE (NEG) - * ?URINE NITRITE NEGATIVE (NEG) - * ?URINE LEUKOCYTE NEGATIVE (NEG) - * ?UROBILINOGEN NORMAL (NORM) - M G/DL * ?URINE WBC'S 1 (0-5) - /HP F * ?URINE RBC'S 1 (0-3) - /HP F * ?MUCUS SLIGHT - /LPF * ?SQUAMOUS EPITH <1 (0-8) - /HPF * Preventive Medicine:? ??YOUR PREVENTIVE WELLNESS PLAN:?Osteoporosis prevention?Calcium, D, strength training.?Breast Cancer Screening (Mammogram):?annually.?Cervical Cancer Screening (Pap Smear):?q 3 years with HPV screen.?Colorectal Cancer Screening:?q 10 years.? * Follow Up:?1 Year * Images: Billing Information: * Visit Code:? [id number] Preventive Care Est Pt. Age 65 and over. * Procedure Codes:? * Electronic signature of Ann García MD on 01/13/2025 at 01:35 PM EST Sign off status: Pending * Appointment Provider:?Verena aGrcía M.D. 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 THEY ARE NOT SEXUALLY ACTIVE. HER HAS CANCER AND IS SEEN AT [facility] Q 2 WEEKS. SHE ENTERED MENOPAUSE AT AGE 52. SHE USES YUVAFEM FOR ATROPHIC VAGINITIS. SHE HAD LCIS IN 2017 AND WAS ADVISED TAMOXIFEN BUT SHE REFUSED. SHE HAS A HX OF PAGET'S DISEASE OF THE RIGHT FEMORAL NECK AND SEES AN ORTHOPEDIC SURGEON. SHE SEES A CUTTER HELPER FOR OSTEOPOROSIS. HER LAST BMD IN 2020 SHOWED THE LOWEST T-SCORE TO BE -2.7 [facility]. SHE HAS RECEIVED 3 DOSES OF RECLAST AND IS [facility] AT [facility]. HER SISTER HAD BREAST CA AND 2 BROTHERS HAD COLON CA. THEY ARE BURLESON NEGATIVE. HER LAST MAMMOGRAM DONE IN 2021 SHOWED BREASTS ARE NOT DENSE AND WAS NORMAL. HER LAST PAP TEST IN 2020 WAS NEGATIVE AND HPV NEGATIVE. SHE HAD A COLONOSCOPY DONE IN [address] VALLEJO IN [place]. SHE IS DUE FOR ANOTHER ONE. PFIZER X 2, MODERNA X 1. Annual General Health Maintenance: Current breast complaints:: no breast pain, mass, discharge, or skin changes Urinary problems:: patient r eports no urinary health problems or bowel health problems Calcium intake:: takes adequ ate calcium via diet and supplementation Significant TITLE ONE READING TEACHER problems:: n o significant bone char kiln operator symptoms or problems Examination Category Sub-Category Detail Notes Category Not es General Exam CONSTITUTIONAL: General Appearan ce:: alert, in no acute distress, normal, well nourished NECK/THYROID: Inspection/Palpation:: normal Thyroid:: normal size and shape RESPIRATORY: Auscultation: clear to auscultation bilaterally, Respiratory Effort: normal CARDIOVASCULAR: Auscultation: regula r rate and rhythm GASTROINTESTINAL: Abdomen:: no masses, nontender , nondistended Liver and Spleen:: normal Hernias:: no hernias present, no inguina l adenopathy MUSCULOSKELETAL: Inspection/Palpation:: no clubb ing, cyanosis, or edema SKIN: Skin:: normal NEURO/PSYCH: Orientation:: time , place, pers on Mood/Affect:: normal BREAST, Right: Inspection/Palpation :: no discharge, no masses present, no nipple retraction, no skin changes, no skin dimpling, no tenderness, no lymphadenopathy, no axillary mass, no axillary tenderness BREAST, Left: Inspection/Palpation :: no discharge, no masses present, no nipple retraction, no skin changes, no skin dimpling, no tenderness, no lymphadenopathy, no axillary mass, no axillary tenderness Genitourinary EXTERNAL GENITALIA: External Genitalia:: nor mal, no lesions VAGINA: Vagina:: normal appearance, no a bnormal discharge, no lesions BLADDER: Bladder:: no mass, nontender URETHRA: Urethra:: no erythema or lesions present CERVIX: Cervix:: no lesions, nontender UTERUS: Uterus:: nontender, normal conto ur, normal mobility, normal size ADNEXA: Adnexa:: no masses, no tendernes s ANUS AND PERINEUM: Anus/Perineum:: visually norm al
--- OUTSIDE RECORDS SUMMARY | 2025-01-13 13:36 | XMS_ITS | Patient Health Record ---
Author Organization [facility] Address [address] [place] [address] Care Team Providers Care Screw Supervisor Name Role Phone Benny Gamez MD Primary Care Provider Sage Archuleta Jr [phone] ALLERGIES Allergen (clinical drug ingredient) Drug/Non Drug Allergy documented on EMR Reaction Allergy Type Onset Date Status Sulfa hives Drug Allergy Active REASON FOR REFERRAL No Information MEDICATIONS Medication SIG (Take, Route, Frequency, Duration) Notes Start Date End Date Status Levothyroxine Sodium Active MiraLax (colon prep) 8.3 ounce (238) grams mixed with Gatorade or Crystal Light orally begin at 5:00 p.m. the day before the procedure for 1 day 10/20/2024 Active SOCIAL HISTORY Sex Assigned At : Social History Observation Description Sex Assigned At Unknown PROBLEMS Problem Type ICD Code Onset Dates Problem Status W/U Status Risk SNOMED Code Notes Problem Epigastric pain (R10.13) Active confirmed 32758212 Problem Family history of colon cancer (Z80.0) Active confirmed 958278904 Problem Chronic gastritis without bleeding, unspecified gastritis type (K29.50) Active confirmed 8610261 Problem Colon cancer screening (Z12.11) Active confirmed 316085160 VITAL SIGNS Blood pressure diastolic 00 mm Hg 10/20/2024 Height 63.25 in 10/20/2024 Blood pressure systolic 00 mm Hg 10/20/2024 Weight 141 lbs 10/20/2024 BMI 24.78 kg/m2 10/20/2024 Encounters Encounter Location Date Provider Diagnosis [facility] [address] [place] [id number] 12/09/2024 Sage [facility]o [facility] [address] [place] [address] 10/20/2024 Sage Jaramillo Jr Chronic gastritis without bleeding, unspecified gastritis type K29.50 and Colon cancer screening Z12.11 [facility] [address] [place] [address] 12/01/2024 Sage Jaramillo Jr ASSESSMENTS Encounter Date Diagnosis Assessment Notes Treatment Notes Treatment Clinical Notes 10/20/2024 Colon cancer screening (ICD-10 - Z12.11) Colonoscopy material was printed 10/20/2024 Chronic gastritis without bleeding, unspecified gastritis type (ICD-10 - K29.50) PLAN OF TREATMENT Future Test Test Name Order Date UPPER GI ENDOSCOPY 09/03/2016 COLONOSCOPY 09/03/2016 COLONOSCOPY 10/20/2024 Next Appt Details Provider Name:Sage raymond Jr, 02/21/2025 07:30:00 AM, [address] [place] [address] , [place], [place], [phone], Insurance Providers Payer Name Payer Address Payer Phone Subscriber Number Group Number Insured Name Patient Relationship to Insured Coverage Start Date Coverage End Date MEDICARE OF [place] [address] [place] [address] [id number] DOROTEO BERGMAN Self - patient is the insured [employer] ATT[employer] CLAIMS [address] [place] [address] [id number] DOROTEO BERGMAN Self - patient is the insured MEDICAL (GENERAL) HISTORY Medical History History ICD Code Palpitations, negative echo and monitor. Hypothyroidism Osteoporosis/Paget's disease Hyperlipidemia Colonoscopy 03/16, diverticulosis, five-y ear followup EGD, gastritis, no H. pylori. Surgical History Surgery Date(Month/Year) x 3 appendectomy blocked tear duct 2022
--- OUTSIDE RECORDS SUMMARY | 2025-01-13 13:36 | XMS_ITS ---
Author Organization [facility] Address [address] [place] [address] Care Team Providers Care Legal Support Manager Name Role Phone Benny Gamez MD Primary Care Provider Unavaila Sage Tatum Jr REASON FOR VISIT screening Encounters Encounter Location Date Provider Diagnosis [facility] [address] [place] [id number] 12/09/2024 Sage Jaramillo Jr PLAN OF TREATMENT Next Appt Details Provider Name:Sage raymond Jr, 02/21/2025 07:30:00 AM, [address] [place] [address], [phone],
--- OUTSIDE RECORDS SUMMARY | 2025-01-13 13:36 | XMS_ITS ---
Author Organization [facility] Address [address] [place] [phone] Care Team Providers Care Cylinder Batcher Name Role Phone Benny Gamez MD Primary Care Provider Sage Archuleta Jr [phone] ALLERGIES Allergen (clinical drug ingredient) Drug/Non Drug Allergy documented on EMR Reaction Allergy Type Onset Date Status Sulfa hives Drug Allergy Active REASON FOR VISIT Patient presents today for a SCREENING COLON MEDICATIONS Medication SIG (Take, Route, Frequency, Duration) Notes Start Date End Date Status Levothyroxine Sodium Active MiraLax (colon prep) 8.3 ounce ((238) grams mixed with Gatorade or Crystal Light orally begin at 5:00 p.m. the day before the procedure for 1 day 10/20/2024 Active PROBLEMS Problem Type ICD Code Onset Dates Problem Status W/U Status Risk SNOMED Code Notes Problem Chronic gastritis without bleeding, unspecified gastritis type (K29.50) Active confirmed 2561172 Problem Colon cancer screening (Z12.11) Active confirmed 472420996 VITAL SIGNS BMI 24.78 kg/m2 10/20/2024 Blood pressure systolic 00 mm Hg 10/20/20 24 Blood pressure diastolic 00 mm Hg 024 Height 63.25 in 10/20/2024 Weight 141 lbs 10/20/2024 Encounters Encounter Location Date Provider Diagnosis [facility] [address] [place] [phone] 10/20/2024 Sage Jaramillo Jr Chronic gastritis without bleeding, unspecified gastritis type K29.50 and Colon cancer screening Z12.11 ASSESSMENTS Encounter Date Diagnosis Assessment Notes Treatment Notes Treatment Clinical Notes 10/20/2024 Chronic gastritis without bleeding, unspecified gastritis type (ICD-10 - K29.50) 10/20/2024 Colon cancer screening (ICD-10 - Z12.11) Colonoscopy material was printed PLAN OF TREATMENT Medication Medication Name Sig Start Date Stop Date Notes MiraLax (colon prep) 8.3 oun ce ((238) grams mixed with Gatorade or Crystal Light orally begin at 5:00 p.m. the day before the procedure for 1 day 10/20/2024 Treatment Notes Assessment Notes Colon cancer screening Colonoscopy mater ial was printed Future Test Test Name Order Date COLONOSCOPY 10/20/2024 Next Appt Details Follow Up: 1 Year, Reason: Provider Name:Sage raymond Jr, 02/21/2025 07:30:00 AM, [address] [place] [address], [phone], Progress Notes * Examination Category Sub-Category Detail Notes General Examination GENERAL APPEARANCE: in no ac [place] distress HEAD: normocephalic EYES: sclera non-icteric NECK/THYROID: no lymphadenopathy HEART: S1, S2 normal, no mu rmurs CHEST: normal shape and exp ansion LUNGS: clear to auscultatio n bilaterally ABDOMEN: soft, nontender, non distended, bowel sounds present, no organomegaly SKIN: anicteric EXTREMITIES: no clubbing, cyanosi s, or edema PSYCH: cognitive function i ntact ORAL CAVITY: mucosa moist
--- OUTSIDE RECORDS SUMMARY | 2025-01-13 13:36 | XMS_ITS | Patient Health Record ---
Author Organization [facility] Address [address] [place] [address] Care Team Providers Care Cartridge Gauger Name Role Phone GISEL WINTER M.D. Primary Care Provider Verena Blanca Unavailable [phone] Allergies Allergen (clinical drug ingredient) Drug/Non Drug Allergy documented on EMR Reaction Allergy Type Onset Date Status Substance with sulfonamide structure and antibacterial mechanism of action (substance) Sulfa Antibiotics Unknown Drug Allergy Active Results Component Value Reference Range Notes [id number] IGP No Culture 30 Plus Reviewed date:11/03/2024 08:03:37 AM Interpretation: Performing Lab:[facility] [place], [address], [address], [place], Phone - [phone], Director - [facility] Notes/Report: Clinical Information:[id number] Dates / Results....05/15/21 NEG HPV No. of containers..01 ThinPrep Vial DIAGNOSIS: NEGATIVE FOR IN TRAEPITHELIAL LESION OR MALIGNANCY. Specimen adequacy: Satisfactory for evaluation. Endocervical and/or squamous metaplastic cells (endocervical component) are present. Clinician provided ICD10: Z0 1.419 Performed by: Shreya Marte ytotechnologist (ASCP) . . Note: The Pap smear is a screening test designed to aid in the detection of premalignant and malignant conditions of the uterine cervix. It is not a diagnostic procedure and should not be used as the sole means of detecting cervical cancer. Both false-positive and false-negative reports do occur. . Test Methodology: This liquid based ThinPrep(R) pap test was screened with the use of an image guided system. HPV Aptima Negative Negative This nucleic acid amplification test detects fourteen high-risk HPV types (16,18,31,33,35,39,45,51,52,56,58 ,59,66,68) without differentiation. HPV Genotype Reflex Criteria not met, HPV Genotype not performed. PDF Report Reviewed date:11/03/2024 08:03:20 AM Interpretation: Performing Lab:[facility] [place], [address], [address], [place], Phone - [phone], Director - [facility] Notes/Report: Clinical Information:[id number] Dates / Results....05/15/21 NEG HPV No. of containers..01 ThinPrep Vial Reason For Referral No Information Medications Medication SIG (Take, Route, Frequency, Duration) Notes Start Date End Date Status Levothyroxine Sodium 25 MCG TAKE 1 TABLE T BY MOUTH DAILY Oral for 90 Active Estradiol Vaginal Cream 0.01% 1 Gram to the affected area Vaginal/Vulva Twice a week for 90 Days 10/25/2024 Active Calcium + D3 Active Social History [...] with Men only Prevention strategies discussed: Other Problems Problem Type SNOMED Code ICD Code Onset Dates Problem Status W/U Status Risk Notes Problem Postmenopausal atrophic vaginitis (15689134) Postmenopausal atrophic vaginitis (N95.2) Active confirmed Problem Age-related osteoporosis (429902626) Age-related osteoporosis without current pathological fracture (M81.0) Active confirmed Problem Hypothyroidism (83786243) Hypothyroidism, unspecified (E03.9) Active confirmed Problem Malignant neoplasm of overlapping sites of left female breast (C50.812) Active confirmed Problem Carcinoma in situ of breast (745387884) Lobular carcinoma in situ of unspecified breast (D05.00) Active confirmed Problem 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 (232721896090065) 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) Active confirmed Problem Osteoarthritis (462626534) Unspecified osteoarthritis, unspecified site (M19.90) Active confirmed Problem Menopause (504365957) Menopausal and female climacteric states (N95.1) Active confirmed Vital Signs Temperature 99.1 degrees Fahrenheit 10/25/2024 Blood pressure diastolic 80 mm Hg 10/25/2024 Height 62.75 in 10/25/2024 Blood pressure systolic 112 mm Hg 10/25/2024 Weight 143 lbs 10/25/2024 BMI 25.53 kg/m2 10/25/2024 Encounters Encounter Location Date Provider Diagnosis [facility] [address] [address] 10/25/2024 Verena García Encounter for gynecological examination (general) (routine) without abnormal findings Z01.419 ; Encounter for screening mammogram for malignant neoplasm of breast Z12.31 ; Lobular carcinoma in situ of unspecified breast D05.00 ; Age-related osteoporosis without current pathological fracture M81.0 and Postmenopausal atrophic vaginitis N95.2 [facility] [address] [place] [address] 08/05/2024 Verena García Assessments Encounter Date Diagnosis (ICD Code) Assessment Notes Treatment Notes Treatment Clinical Notes Section Notes 10/25/2024 Encounter for gynecological examination (general) (routine) without abnormal findings (ICD-10 - Z01.419) PAP TEST WITH HPV TYPING WAS OBTAINED. 10/25/2024 Encounter for screening mammogram for malignant neoplasm of breast (ICD-10 - Z12.31) REGULAR MAMMOGRAMS AND SBE'S WERE RECOMMENDED. 10/25/2024 Lobular carcinoma in situ of unspecified breast (ICD-10 - D05.00) DISCUSSED LCIS AND REASSURED PAT THIS IS A BENIGN DX THAT INCREASES HER BREAST CA RISK. 10/25/2024 Age-related osteoporosis without current pathological fracture (ICD-10 - M81.0) DISCUSSED OSTEOPOROSIS AND ITS IMPACT ON HER HEALTH. ADEQUATE CALCIUM AND VIT D. WEIGHT BEARING EXERCISES. OSTEO PRECAUTIONS. REPEAT BMD IN 2025. 10/25/2024 Postmenopausal atrophic vaginitis (ICD-10 - N95.2) DISCUSSED FINDINGS, DX AND TX OPTIONS. SHIFT TO ESTRADIOL CREAM. BE WARY ABOUT DOSES USED PAT HAS A HX OF LCIS. BENEFITS AND RISKS OF INTRAVAGINAL ESTROGEN WERE DISCUSSED IN THE LIGHT OF PREVIOUS LCIS DX. BENEFITS OUTWEIGH THE RISKS. Plan Of Treatment Pending Test Test Name Order Date MAMMOGRAM, SCREENING 10/21/2023 MAMMOGRAM, SCREENING 05/15/2021 MAMMOGRAM, SCREENING 10/16/2022 MAMMOGRAM, SCREENING 10/25/2024 BONE DENSITY 10/21/2023 MM Digital Mammo Screening 10/21/2023 MM Digital Mammo Screening 05/15/2021 MM Digital Mammo Screening 10/25/2024 Next Appt Details Provider Name:Verena Radha beltre, 11/01/2025 10:40:00 AM, [address], [address], [place], [address], Insurance Providers Payer Name Payer Address Payer Phone Subscriber Number Group Number Insured Name Patient Relationship to Insured Coverage Start Date Coverage End Date MEDICARE [address] [place] [id number] DOROTEO BERGMAN Self - patient is the insured MEDEX [address] [place] [address] [phone] [id number] DOROTEO BERGMAN Self - patient is the insured Medical (General) History Medical History History ICD Code Malignant neoplasm of overlapping sites of left female breast C50.812 Age-related osteoporosis without current pathological fracture M81.0 Unspecified osteoarthritis, unspecified site M19.90 Hypothyroidism, unspecified E03.9 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 D05.02 Menopausal and female climacteric states N95.1 Postmenopausal atrophic vaginitis N95.2 Other specified disorders of bone densit y and structure, multiple sites M85.89 Surgical History Surgery Date(Month/Year) x 3 1981, 1984, 1986 Colonoscopy Left Breast Biopsy Hospitalization History Reason Date(Month/Year) See Surgical Hx
--- OUTSIDE RECORDS SUMMARY | 2025-01-13 13:36 | XMS_ITS ---
Author Organization [facility] Address [address] [place] [address] Care Team Providers Care Transportation Logistics Internship Name Role Phone Benny Gamez MD Primary Care Provider UnavailSage Bowman Jr [phone] REASON FOR VISIT rescheduled her colon Encounters Encounter Location Date Provider Diagnosis [facility] [address] [place] [phone] 12/01/2024 Sage Jaramillo Jr PLAN OF TREATMENT Next Appt Details Provider Name:Sage raymond Jr, 02/21/2025 07:30:00 AM, [address] [place] [address] , [place], [place], [phone],
--- OUTSIDE RECORDS SUMMARY | 2025-01-13 13:36 | XMS_ITS ---
Author Organization [facility] Address [address] [facility] [address] [place] [address] Care Team Providers Care Outpatient Interviewing Clerk Name Role Phone GISEL WINTER M.D. Primary Care Provider Arash García Verena Unavailable [phone] Allergies Allergen (clinical drug ingredient) Drug/Non Drug Allergy documented on EMR Reaction Allergy Type Onset Date Status Substance with sulfonamide structure and antibacterial mechanism of action (substance) Sulfa Antibiotics Unknown Drug Allergy Active Results Component Value Reference Range Notes [id number] IGP No Culture 30 Plus Reviewed date:11/03/2024 08:03:37 AM Interpretation: Performing Lab:[facility] [place], [address], [address], [place], Phone - [phone], Director - [facility] Notes/Report: Clinical Information:[id number] Dates / Results....05/15/21 NEG HPV No. of [...] Reviewed date:11/03/2024 08:03:20 AM Interpretation: Performing Lab:[facility] [place], [address], [address], [place], Phone - [phone], Director - [facility] Notes/Report: Clinical Information:[id number] Dates / Results....05/15/21 NEG HPV No. of containers..01 ThinPrep Vial REASON FOR VISIT HR MEDICARE PE, Annual BABY DOCTOR Physical 60-85+ Medications Medication SIG (Take, Route, [...] Prevention strategies discussed: Other Vital Signs Temperature 99.1 degrees Fahrenheit 10/25/20 24 Blood pressure systolic 112 mm Hg 10/25/20 24 Blood pressure diastolic 80 mm Hg 024 Height 62.75 in 10/25/2024 Weight 143 lbs 10/25/2024 BMI 25.53 kg/m2 10/25/2024 Encounters Encounter Location Date Provider Diagnosis [address] [place] [address] 10/25/2024 Verena García Encounter for gynecological examination (general) (routine) without abnormal findings Z01.419 ; Encounter for screening mammogram for malignant neoplasm of breast Z12.31 ; Lobular carcinoma in situ of unspecified breast D05.00 ; Age-related osteoporosis without current pathological fracture M81.0 and Postmenopausal atrophic vaginitis N95.2 Assessments Encounter Date Diagnosis (ICD Code) Assessment [...] BENEFITS OUTWEIGH THE RISKS. Plan Of Treatment Medication Medication Name Sig Start Date Stop Date Notes Estradiol Vaginal Cream 0.01% 1 Gram to the affected area Vaginal/Vulva Twice a week for 90 Days 10/25/2024 Treatment Notes Assessment Notes Encounter for gynecological examination (general) (routine) without abnormal findings PAP TEST WITH HPV TYPING WAS OBTAINED. Encounter for screening mamm ogram for malignant neoplasm of breast REGULAR MAMMOGRAMS AND SBE'S WERE RECOMMENDED. Lobular carcinoma in situ of unspecified breast DISCUSSED LCIS AND REASSURED PAT THIS IS A BENIGN DX THAT INCREASES HER BREAST CA RISK. Age-related osteoporosis wit hout current pathological fracture DISCUSSED OSTEOPOROSIS AND ITS IMPACT ON HER HEALTH. ADEQUATE CALCIUM AND VIT D. WEIGHT BEARING EXERCISES. OSTEO PRECAUTIONS. REPEAT BMD IN 2025. Postmenopausal atrophic vaginitis DISCUSSED FINDINGS, DX AND TX OPTIONS. SHIFT TO ESTRADIOL CREAM. BE WARY ABOUT DOSES USED PAT HAS A HX OF LCIS. BENEFITS AND RISKS OF INTRAVAGINAL ESTROGEN WERE DISCUSSED IN THE LIGHT OF PREVIOUS LCIS DX. BENEFITS OUTWEIGH THE RISKS. Pending Test Test Name Order Date MAMMOGRAM, SCREENING 10/25/2024 MM Digital Mammo Screening 10/25/2024 Next Appt Details Follow Up: 1 Year, Reason: Provider Name:Verena beltre, 11/01/2025 10:40:00 AM, [address] [facility], [address], [place], [address], Progress Notes * DOROTEO BERGMANDOB:[birth year] (69 yo F)Acc No.[id number]:10/25/2024 PROGRESS NOTES Patient:?DOROTEO BERGMAN Appointment Provider:?Verena beltre M.D. :1955???Age:69 Y???Sex:Female D ate:10/25/2024 Address:[address] [place], [place] [id number] Pcp:GISEL WINTER M.D. Subjective: * Chief Complaints: * ???HR MEDICARE PEAnnual BABY DOCTOR Physical 60-85+ * HPI: ???New/Follow-up Patient Consult:? DOROTEO ENTERED MENOPAUSE AT AGE 52.? SHE LOST HER THIS SUMMER DUE TO ACUTE MYELOGENOUS LEUKEMIA.? SHE HAD BEEN GIVEN YUVAFEM FOR ATROPHIC VAGINITIS AND VAGINAL DRYNESS BUT SHE DISCONTINUED THIS THIS WAS NOT HELPFUL. SHE WAS DIAGNOSED TO HAVE LCIS IN 2016 AND REFUSED TAMOXIFEN.? SHE IS SEEN AT [facility]. HER LAST MAMMOGRAM DONE IN DEC 2023 SHOWED BREASTS ARE NOT DENSE AND WAS NORMAL. HER LAST PAP TEST IN 2020 WAS NEGATIVE AND HPV NEGATIVE. SHE IS KNOWN TO BE OSTEOPOROTIC AND WAS GIVEN RECLAST HERE THRICE.? HER LAST BMD IN 2023 SHOWED THE LOWEST T-SCORE TO BE -2.6 AT THE SPINE, NO SIGNIFICANT CHANGE COMPARED TO HER BMD IN 2020. 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 SHE HAS NO HX OF FRACTURES. SHE HAD A COLONOSCOPY DONE IN 2016.? TWO BROTHERS HAD COLON CA.? SHE IS SCHEDULED FOR ANOTHER COLONOSCOPY? IN NOV 2024. PFIZER X 2, MODERNA X 1. ???Annual:? Patient presents for annual exam, ages 60-85, postmenopausal. ?General Health Maintenance:?Current breast complaints:?no breast pain, mass, discharge, or skin changes ?Urinary problems:?patient reports no urinary health problems or bowel health problems ?Calcium intake:?takes adequate calcium via diet and supplementation ?Significant BABY DOCTOR problems:?no significant clerical production worker symptoms or problems * ROS:?general:?no?chest pain.?no?palpitations.?no?headache.?no?cough.?no?shortness of breath.?no?fever.?no?unexplained weight loss.?no?nausea/vomiting.?no?change in bowel movements.?no blood in stool.?no?genitourinary complaints.?no?skin complaints.? * Medical History:? * Neurological Surgery Teacher History:?/ Para?3/3.?Sexual activity?currently sexually active.?Last Pap Smear:?05/15/21 NIL, NEG HPV, 2014.?Mammogram:?01/08/24 < 50% density, 10/2022 [place], 10/2021 [facility], 2019.?Abnormal Pap Smear:?no history of abnormal pap smears.?LMP and menses?Cat.?History of STD's:?none.?Menopause: ?Began at age: ?52 ???Colonoscopy?2016.?Bone Density:?12/25/23, 03/07/21.? * OB History:?Total pregnancies?3.?Total living children?3.?(s)?3.? * Surgical History:? x 3 1981, 1985, 1986Colonoscopy Left Breast Biopsy * Hospitalization/Major Diagno stic Procedure:?See Surgical Hx * Family History:?Mother: charlotte woodruff, Well.?Father: , [...] Retired. ?Sexually active: yes, monogamous relationship. * Medications:?TakingCalcium + D3 Levothyroxine Sodium 25 MCG Tablet TAKE 1 TABLET BY MOUTH DAILY Oral Taking Calcium + D3 Taking Levothyroxine Sodium 25 MCG Tablet TAKE 1 TABLET BY MOUTH DAILY Oral DiscontinuedYuvafem 10 MCG Tablet 1 tablet Vaginal Two times a Week Yuvafem 10 MCG Tablet 1 tablet Vaginal ONCE A WEEK Medication List reviewed and reconciled with the patientDiscontinued Yuvafem 10 MCG Tablet 1 tablet Vaginal Two times a Week Discontinued Yuvafem 10 MCG Tablet 1 tablet Vaginal ONCE A WEEK Medication List reviewed and reconciled with the patient * Allergies:?Sulfa Antibiotics : Allergyno[Allergies Verified] Objective: * Vitals:?Ht: 62.75 in, Wt: 14 3 lbs, BMI:25.53Index, BP: 112/80 mm Hg, Temp: 99.1 F. * Examination: ???General Exam: ?CONSTITUTIONAL:?NECK/THYROID:?RESPIRATORY:?Auscultation: clear to auscultation bilaterally, Respiratory Effort: normal.?CARDIOVASCULAR:?Auscultation: regular rate and rhythm.?BREAST, Right:?BREAST, Left:?GASTROINTESTINAL:?MUSCULOSKELETAL:?SKIN:?NEURO/PSYCH:?Genitourinary: ?EXTERNAL GENITALIA:?VAGINA:?BLADDER:?URETHRA:?CERVIX:?UTERUS:?ADNEXA:?ANUS AND PERINEUM:? Assessment: * Assessment: 1.?Encounter for gynecologic al examination (general) (routine) without abnormal findings - Z01.419???2.?Encounter for screening mammogram for malignant neoplasm of breast - Z12.31???3.?Lobular carcinoma in situ of unspecified breast - D05.00?? 4.?Age-related osteoporosis without current pathological fracture - M81.0???5.?Postmenopausal atrophic vaginitis - N95.2??? Plan: * Treatment: Notes: PAP TEST WITH HPV TYPING WAS OBTAINED.??2.?Encounter for screening mammogram for malignant neoplasm of breast?Imaging: MM Digital Mammo Screening Notes: REGULAR MAMMOGRAMS AND SBE'S WERE RECOMMENDED.??3.?Lobular carcinoma in situ of unspecified breast? Notes: DISCUSSED LCIS AND REASSURED PAT THIS IS A BENIGN DX THAT INCREASES HER BREAST CA RISK. ??4.?Age-related osteoporosis without current pathological fracture? Notes: DISCUSSED OSTEOPOROSIS AND ITS IMPACT ON HER HEALTH. ADEQUATE CALCIUM AND VIT D. WEIGHT BEARING EXERCISES. OSTEO PRECAUTIONS. REPEAT BMD IN 2025.??5.?Postmenopausal atrophic vaginitis? Start Estradiol Vaginal Cream Cream, 0.01%, 1 Gram to the affected area, Vaginal/Vulva, Twice a week, 90 Days, 42.5 Gram, Refills 4.?? Notes: DISCUSSED FINDINGS, DX AND TX OPTIONS. SHIFT TO ESTRADIOL CREAM. BE WARY ABOUT DOSES USED PAT HAS A HX OF LCIS. BENEFITS AND RISKS OF INTRAVAGINAL ESTROGEN WERE DISCUSSED IN THE LIGHT OF PREVIOUS LCIS DX. BENEFITS OUTWEIGH THE RISKS.?? * Imaging:? * ?Imaging: MAMMOGRAM, SCR EENING * Procedure Codes:? * Preventive Medicine:? ??YOUR PREVENTIVE WELLNESS PLAN:?Osteoporosis prevention?Calcium, D, strength training.?Breast Cancer Screening (Mammogram):?annually.?Cervical Cancer Screening (Pap Smear):?q 3 years with HPV screen.?Colorectal Cancer Screening:?q 10 years.? * Follow Up:?1 Year * Images: Billing Information: * Visit Code:? [id number] Preventive Care Est Pt. Age 65 and over. * Procedure Codes:? * Sign off status: Completed true * Appointment Provider:?Verena García M.D. Date:?10/25/2024 Generated for José herrera/Bobo/Demetria on:?01/13/2025 01:36 PM EST History and Physical Notes * HPI (History of Present Illness) Category Sub-Category Detail Notes Category Not es New/Follow-up Patient Consult DOROTEO ENTERED MENOPAUSE AT AGE 52. SHE LOST HER THIS SUMMER DUE TO ACUTE MYELOGENOUS LEUKEMIA. SHE HAD BEEN GIVEN YUVAFEM FOR ATROPHIC VAGINITIS AND VAGINAL DRYNESS BUT SHE DISCONTINUED THIS THIS WAS NOT HELPFUL. SHE WAS DIAGNOSED TO HAVE LCIS IN 2016 AND REFUSED TAMOXIFEN. SHE IS SEEN AT [facility]. HER LAST MAMMOGRAM DONE IN DEC 2023 SHOWED BREASTS ARE NOT DENSE AND WAS NORMAL. HER LAST PAP TEST IN 2020 WAS NEGATIVE AND HPV NEGATIVE. SHE IS KNOWN TO BE OSTEOPOROTIC AND WAS GIVEN RECLAST HERE THRICE. HER LAST BMD IN 2023 SHOWED THE LOWEST T-SCORE TO BE -2.6 AT THE [facility], NO SIGNIFICANT CHANGE COMPARED TO HER BMD IN 2020. 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 SHE HAS NO HX OF FRACTURES. SHE HAD A COLONOSCOPY DONE IN 2016. TWO BROTHERS HAD COLON CA. SHE IS SCHEDULED FOR ANOTHER COLONOSCOPY IN NOV 2024. PFIZER X 2, MODERNA X 1. Annual General Health Maintenance: Current breast complaints:: no breast pain, mass, discharge, or skin changes Urinary problems:: patient r eports no urinary health problems or bowel health problems Calcium intake:: takes adequ ate calcium via diet and supplementation Significant BABY DOCTOR problems:: n o significant clerical production worker symptoms or problems Examination Category Sub-Category Detail [...] Genitalia:: nor mal, no lesions VAGINA: Vagina:: atrophic va ginal tissue, decreased rugae pattern, minimal moisture BLADDER: Bladder:: no mass, nontender URETHRA: Urethra:: no erythema or lesions present CERVIX: Cervix:: no lesions, nontender UTERUS: Uterus:: nontender, normal conto ur, normal mobility, normal size ADNEXA: Adnexa:: no masses, no tendernes s ANUS AND PERINEUM: Anus/Perineum:: visually norm al
== END 2025-01-13 13:25 | disposition home or self-care (01) ==
LOC: HO.MAMMO 13:24
PROVIDERS: Absent Provider Obstetrics & Gynecology Gynecology; PCP Internal Medicine; Visit Provider Internal Medicine
DX: Z12.31 Encounter for screening mammogram for malignant neoplasm of breast (principal)
CPT/HCPCS: 77063; 77067

== ENCOUNTER → 2025-01-13 13:30 | Outpatient (BNV) | payer MEDICARE, SELFPAY | PROVIDERS: Absent Provider Obstetrics & Gynecology Gynecology; PCP Internal Medicine; Visit Provider Internal Medicine | DX: Z12.31 Encounter for screening mammogram for malignant neoplasm of breast (principal) | CPT/HCPCS: 77063; 77067 ==

== ENCOUNTER 2025-02-21 06:26 | Day surgery (SDC) | payer MEDICARE, SELFPAY ==
--- OUTSIDE RECORDS SUMMARY | 2025-02-02 08:49 | XMS_ITS ---
Author Organization [facility] Address [address] [place] [address] Care Team Providers Care Crisis Counselor Name Role Phone Benny Gamez MD Primary Care Provider Sage Archuleta Jr REASON FOR VISIT screening Encounters Encounter Location Date Provider Diagnosis [facility] Outpatient [address] [place] [phone] 12/09/2024 Sage Jaramillo Jr Plan Of Treatment Next Appt Details Provider Name:Sage raymond Jr, 02/21/2025 07:30:00 AM, [address] [place] [address], [phone], Progress Notes * DOROTEO BERGMAN FDOB: (69 yo F)Acc No.[id number]:12/09/2024 COLON WITH MAC Patient:?DOROTEO BERGMAN Provider:?Sage Jaramillo MD :1955???Age:69 Y???Sex:Female D ate:12/09/2024 Address:[address] [place] [address] Pcp:Benny Gamez MD Subjective: * Chief Complaints: * ???1. Screening. * Medical History:? Objective: * Vitals:? Assessment: Plan: * Treatment: * * The named appointment provid er may or may not be the originator of this progress note, and it is not deemed complete until electronically signed by the appointment provider. Sign off status: Pending * Provider:?Sage Jaramillo MD Date:?0 12/09/2024 Generated for José herrera/Bobo/Demetria on:?02/02/2025 08:49 AM EST
--- OUTSIDE RECORDS SUMMARY | 2025-02-02 08:49 | XMS_ITS ---
Author Organization [facility] Address [address] [place] [address] [address] [place] [address] Care Team Providers Care Paratransit Operator Name Role Phone GISEL WINTER M.D. Primary Care Provider Arash García Verena Unavailable [phone] Allergies Allergen (clinical drug ingredient) Drug/Non Drug [...] Interpretation: Performing Lab:Testing performed or reported by [facility], a Service of [facility], [address] [place] [address] Fortunato Shelley MD, Trailer Driver [facility]# [id number] Notes/Report: APPEAR/COLOR LIGHT YELLOW CLEAR SP. GRAVITY [...] Interpretation: Performing Lab:Testing performed or reported by [facility], a Service of [facility], [facility] [place] [address] Fortunato Shelley MD, Trailer Driver [facility]# [id number] Notes/Report: SPECIMEN DESCRIPTION URINE SPECIAL REQUESTS NONE CULTURE NO GROWTH REPORT STATUS FINAL 10/22/2023 REASON FOR VISIT Annual HYDRAULIC BLOCKER Physical, Annual HYDRAULIC BLOCKER Physical 60-85+ Medications Medication SIG (Take, Route, [...] 10/21/2023 Encounters Encounter Location Date Provider Diagnosis [address] [place] [address] 10/21/2023 Verena García Encounter for screening mammogram [...] (ICD-10 - D05.00) CONTINUE VOLLOW UP AT [facility] 10/21/2023 Postmenopausal atrophic vaginitis (ICD-10 - N95.2) [...] of unspecified breast CONTINUE VOLLOW UP AT [facility] Postmenopausal atrophic vaginitis CONITN UE YUVAFEM. BENEFITS [...] Provider Name:Verena beltre, 11/01/2025 10:40:00 AM, [address], [address], [place], [address], Progress Notes * DOROTEO BERGMANDOB:[birth year] (69 yo F)Acc No.[id number]:10/21/2023 PROGRESS NOTES Patient:?DOROTEO BERGMAN Appointment Provider:?Verena beltre M.D. :1955???Age:68 Y???Sex:Female D ate:10/21/2023 Address:[address] [place], [place] [id number] Pcp:GISEL WINTER M.D. Subjective: * Chief Complaints: * ???1. Annual HYDRAULIC BLOCKER Physical. 2 . Annual HYDRAULIC BLOCKER Physical 60-85+. * HPI: ???New/Follow-up Patient Consult:? 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 THEY ARE NOT SEXUALLY ACTIVE. HER HAS CANCER AND IS SEEN AT [facility] Q 2 WEEKS. SHE ENTERED MENOPAUSE AT AGE 52. SHE USES YUVAFEM FOR ATROPHIC VAGINITIS. SHE HAD LCIS IN 2017 AND WAS ADVISED TAMOXIFEN BUT SHE REFUSED. SHE HAS A HX OF PAGET'S DISEASE OF THE RIGHT FEMORAL NECK AND SEES AN ORTHOPEDIC SURGEON. SHE SEES A COMMUNITY DEVELOPMENT AIDE FOR OSTEOPOROSIS. HER LAST BMD IN 2020 [...] IN [address] VALLEJO IN [place]. SHE IS DUE FOR ANOTHER ONE. PFIZER X 2, MODERNA X 1. ???Annual:? Patient presents for annual exam, ages 60-85, postmenopausal. ?General Health Maintenance:?Current breast complaints:?no breast pain, mass, discharge, or skin changes ?Urinary problems:?patient reports no urinary health problems or bowel health problems ?Calcium intake:?takes adequate calcium via diet and supplementation ?Significant HYDRAULIC BLOCKER problems:?no significant director strategic planning symptoms or problems * ROS:?general:?no?chest pain.?no?palpitations.?no?headache.?no?cough.?no?shortness of breath.?no?fever.?no?unexplained weight loss.?no?nausea/vomiting.?no?change in bowel movements.?no blood in stool.?no?genitourinary complaints.?no?skin complaints.? 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 * Examination: ???General Exam: ?CONSTITUTIONAL:?General Appearance:?alert, in no acute distress, normal, well nourished ?NECK/THYROID:?Inspection/Palpation:?normal ?Thyroid:?normal size and shape ?RESPIRATORY:?Auscultation: clear to auscultation bilaterally, Respiratory Effort: normal.?CARDIOVASCULAR:?Auscultation: regular rate and rhythm.?BREAST, Right:?Inspection/Palpation:?no discharge, no masses present, no nipple retraction, no skin changes, no skin dimpling, no tenderness, no lymphadenopathy, no axillary mass, no axillary tenderness ?BREAST, Left:?Inspection/Palpation:?no discharge, no masses present, no nipple retraction, no skin changes, no skin dimpling, no tenderness, no lymphadenopathy, no axillary mass, no axillary tenderness ?GASTROINTESTINAL:?Abdomen:?no masses, nontender, nondistended ?Liver and Spleen:?normal ?Hernias:?no hernias present, no inguinal adenopathy ?MUSCULOSKELETAL:?Inspection/Palpation:?no clubbing, cyanosis, or edema ?SKIN:?Skin:?normal ?NEURO/PSYCH:?Orientation:?time , place, person ?Mood/Affect:?normal?Genitourinary: ?EXTERNAL GENITALIA:?External Genitalia:?normal, no lesions ?VAGINA:?Vagina:?normal appearance, no abnormal discharge, no lesions ?BLADDER:?Bladder:?no mass, nontender ?URETHRA:?Urethra:?no erythema or lesions present ?CERVIX:?Cervix:?no lesions, nontender ?UTERUS:?Uterus:?nontender, normal contour, normal mobility, normal size ?ADNEXA:?Adnexa:?no masses, no tenderness ?ANUS AND PERINEUM:?Anus/Perineum:?visually normal??? Assessment: * Assessment: 1.?Encounter for screening m [...] unspecified breast? Notes: CONTINUE VOLLOW UP AT [facility]?? 5.?Postmenopausal atrophic v aginitis? Start Yuvafem Tablet, 10 MCG, 1 tablet, Vaginal, ONCE A WEEK, 90 days, 12 Tablet, Refills 4.?? Notes: SHEMAR YUVAFEM. BENEFITS AND RISKS WERE DISCUSSED AND [...] * ?BILIRUBIN Neg * ?BLOOD Neg * D.,ROD 10/21/2023 11:28:44 AM > U/A and Urine [...] * Images: Billing Information: * Visit Code:? 77213 Preventive Care Est Pt. Age 65 and over. * Procedure Codes:? * Electronic signature of Ann García MD on 02/02/2025 at 08:49 AM EST Sign off status: Pending * Appointment Provider:?Verena García M.D. 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 THEY ARE NOT SEXUALLY ACTIVE. HER HAS CANCER AND IS SEEN AT [facility] Q 2 WEEKS. SHE ENTERED MENOPAUSE AT AGE 52. SHE USES YUVAFEM FOR ATROPHIC VAGINITIS. SHE HAD LCIS IN 2017 AND WAS ADVISED TAMOXIFEN BUT SHE REFUSED. SHE HAS A HX OF PAGET'S DISEASE OF THE RIGHT FEMORAL NECK AND SEES AN ORTHOPEDIC SURGEON. SHE SEES A COMMUNITY DEVELOPMENT AIDE FOR OSTEOPOROSIS. HER LAST BMD IN 2020 [...] IN [address] VALLEJO IN [place]. SHE IS DUE FOR ANOTHER ONE. PFIZER X 2, MODERNA X 1. Annual General Health Maintenance: Current breast complaints:: no breast pain, mass, discharge, or skin changes Urinary problems:: patient r eports no urinary health problems or bowel health problems Calcium intake:: takes adequ ate calcium via diet and supplementation Significant HYDRAULIC BLOCKER problems:: n o significant director strategic planning symptoms or problems Examination Category Sub-Category Detail [...]
--- OUTSIDE RECORDS SUMMARY | 2025-02-02 08:49 | XMS_ITS ---
Author Organization [facility] Address [address] [facility] [address] [place] [address] Care Team Providers Care Head Operator Name Role Phone GISEL WINTER M.D. Primary Care Provider Verena Blanca [phone] REASON FOR VISIT ? STOPPING YUVAFEM Encounters Encounter Location Date Provider Diagnosis [facility] [address] [address] 08/05/2024 Verena García Plan Of Treatment Next Appt Details Provider Name:Verena beltre, 11/01/2025 10:40:00 AM, [address] [place] [address], [place], [address], Progress Notes * DOROTEO BERGMANDOB:[birth year] (69 yo F)Acc No.[id number]:08/05/2024 Patient:?DOROTEO BERGMAN :1955???Age:69 Y???Sex:Female Address:[address] [place] [address], [address] * true * Date:? Generated for Lizeti javier/Bobo/eTransmitting on:?02/02/2025 08:49 AM EST
--- OUTSIDE RECORDS SUMMARY | 2025-02-02 08:50 | XMS_ITS ---
Author Organization [facility] Address [address] [facility] [address] [place] [address] Care Team Providers Care Rehabilitator Name Role Phone GISEL WINTER M.D. Primary Care Provider Arash García Verena Unavailable [phone] Allergies Allergen (clinical drug ingredient) Drug/Non Drug Allergy documented on EMR Reaction Allergy Type Onset Date Status Substance with sulfonamide structure and antibacterial mechanism of action (substance) Sulfa Antibiotics Unknown Drug Allergy Active Results Component Value Reference Range Notes [id number] IGP No Culture 30 Plus Reviewed date:11/03/2024 08:03:37 AM Interpretation: Performing Lab:[facility] [place], [address], [address], [place], Phone - [phone], Director - [facility] Notes/Report: Clinical Information:[id number] Dates / Results....05/15/21 NEG HPV No. of [...] Reviewed date:11/03/2024 08:03:20 AM Interpretation: Performing Lab:[facility] [place], [address], [address], [place], Phone - [phone], Director - [facility] Notes/Report: Clinical Information:[id number] Dates / Results....05/15/21 NEG HPV No. of containers..01 ThinPrep Vial REASON FOR VISIT HR MEDICARE PE, Annual CASE LOADER OPERATOR Physical 60-85+ Medications Medication SIG (Take, Route, [...] 10/25/2024 Encounters Encounter Location Date Provider Diagnosis [address] [place] [address] 10/25/2024 Verena García Encounter for gynecological examination [...] Name:Verena beltre, 11/01/2025 10:40:00 AM, [address] [facility], [address], [place], [address], Progress Notes * DOROTEO BERGMANDOB:[birth year] (69 yo F)Acc No.[id number]:10/25/2024 PROGRESS NOTES Patient:?DOROTEO BERGMAN Appointment Provider:?Verena beltre M.D. :1955???Age:69 Y???Sex:Female D ate:10/25/2024 Address:[address] [place], [place] [id number] Pcp:GISEL WINTER M.D. Subjective: * Chief Complaints: * ???HR MEDICARE PEAnnual CASE LOADER OPERATOR Physical 60-85+ * HPI: ???New/Follow-up Patient Consult:? [...] BMD IN 2020. SHE NOW SEES A PALEOLOGIST IN [place] AND SHE WAS ADVISED TO DISCONTINUE RECLAST.? [...] adequate calcium via diet and supplementation ?Significant CASE LOADER OPERATOR problems:?no significant artisan plasterer symptoms or problems * ROS:?general:?no?chest pain.?no?palpitations.?no?headache.?no?cough.?no?shortness of breath.?no?fever.?no?unexplained weight loss.?no?nausea/vomiting.?no?change in bowel movements.?no blood in stool.?no?genitourinary complaints.?no?skin complaints.? * Medical History:? 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 * Examination: ???General Exam: ?CONSTITUTIONAL:?General Appearance:?alert, in [...] person ?Mood/Affect:?normal?Genitourinary: ?EXTERNAL GENITALIA:?External Genitalia:?normal, no lesions ?VAGINA:?Vagina:?atrophic vaginal tissue, decreased rugae pattern, minimal moisture ?BLADDER:?Bladder:?no mass, nontender ?URETHRA:?Urethra:?no erythema or lesions present ?CERVIX:?Cervix:?no lesions, nontender ?UTERUS:?Uterus:?nontender, normal contour, normal mobility, normal size ?ADNEXA:?Adnexa:?no masses, no tenderness ?ANUS AND PERINEUM:?Anus/Perineum:?visually normal??? Assessment: * Assessment: 1.?Encounter for gynecologic al [...] * Images: Billing Information: * Visit Code:? 56781 Preventive Care Est Pt. Age 65 and over. * Procedure Codes:? * Sign off status: Completed true * Appointment Provider:?Verena García M.D. Date:?10/25/2024 Generated for José herrera/Bobo/Lucienitting on:?02/02/2025 08:49 AM EST History and Physical [...] BMD IN 2020. SHE NOW SEES A PALEOLOGIST IN [place] AND SHE WAS ADVISED TO DISCONTINUE RECLAST. [...] ate calcium via diet and supplementation Significant CASE LOADER OPERATOR problems:: n o significant artisan plasterer symptoms or problems Examination Category Sub-Category Detail Notes Category Not es General Exam CONSTITUTIONAL: General Appearan ce:: alert, in no acute distress, normal, well nourished NECK/THYROID: Thyroid:: normal size and shape Inspection/Palpation:: normal RESPIRATORY: Auscultation: clear to auscultation bilaterally, Respiratory Effort: normal CARDIOVASCULAR: Auscultation: regula r rate and rhythm GASTROINTESTINAL: Hernias:: no hernias present, no inguinal adenopathy Liver and Spleen:: normal Abdomen:: no masses, nontender, nondiste nded MUSCULOSKELETAL: Inspection/Palpation:: no clubb ing, cyanosis, or edema SKIN: Skin:: normal NEURO/PSYCH: Mood/Affect:: normal Orientation:: time , place, person BREAST, Right: Inspection/Palpation :: no discharge, no [...]
--- OUTSIDE RECORDS SUMMARY | 2025-02-02 08:50 | XMS_ITS | Patient Health Record ---
Author Organization [facility] Address [address] [place] [address] Care Team Providers Care Electrical Accessories Assembler Name Role Phone Benny Gamez MD Primary Care Provider Sage Archuleta Jr Allergies Allergen (clinical drug ingredient) Drug/Non Drug Allergy documented on EMR Reaction Allergy Type Onset Date Status Sulfa hives Drug Allergy Active Reason For Referral No Information Medications Medication SIG (Take, Route, Frequency, Duration) Notes Start Date End Date Status Levothyroxine Sodium Active MiraLax (colon prep) 8.3 ounce ((238) grams mixed with Gatorade or Crystal Light orally begin at 5:00 p.m. the day before the procedure for 1 day 10/20/2024 Active Problems Problem Type SNOMED Code ICD Code Onset Dates Problem Status W/U Status Risk Notes Problem 920129372 Colon cancer screening (Z12.11) Active confirmed Problem 37767089 Epigastric pain (R10.13) Active confirmed Problem 015285462 Family history of colon cancer (Z80.0) Active confirmed Problem 7332842 Chronic gastritis without bleeding, unspecified gastritis type (K29.50) Active confirmed Vital Signs Blood pressure diastolic 00 mm Hg 10/20/2024 Height 63.25 in 10/20/2024 Blood pressure systolic 00 mm Hg 10/20/2024 Weight 141 lbs 10/20/2024 BMI 24.78 kg/m2 10/20/2024 Encounters Encounter Location Date Provider Diagnosis [facility] [address] [place] [address] 10/20/2024 Sage Jaramillo Jr Chronic gastritis without bleeding, unspecified gastritis type K29.50 and Colon cancer screening Z12.11 [facility] [address] [place] [address] 12/01/2024 Sage Jaramillo Jr Assessments Encounter Date Diagnosis (ICD Code) Assessment Notes Treatment Notes Treatment Clinical Notes Section Notes 10/20/2024 Colon cancer screening (ICD-10 - Z12.11) Colonoscopy material was printed Currently, she is doing well. She is controlling her gastritis symptoms well with diet. We encouraged this. She is due for colorectal cancer screening. This will be arranged. She understands risks and benefits and agrees to proceed. 10/20/2024 Chronic gastritis without bleeding, unspecified gastritis type (ICD-10 - K29.50) Currently, she is doing well. She is controlling her gastritis symptoms well with diet. We encouraged this. She is due for colorectal cancer screening. This will be arranged. She understands risks and benefits and agrees to proceed. Plan Of Treatment Future Test Test Name Order Date UPPER GI ENDOSCOPY 09/03/2016 COLONOSCOPY 09/03/2016 COLONOSCOPY 10/20/2024 Next Appt Details Provider Name:Sage raymond Jr, 02/21/2025 07:30:00 AM, [address] [place] [address] , [place], [place], [phone], Insurance Providers Payer Name Payer Address Payer Phone Subscriber Number Group Number Insured Name Patient Relationship to Insured Coverage Start Date Coverage End Date MEDICARE OF [place] [address] [place] [address] [phone] [id number] DOROTEO BERGMAN Self - patient is the insured MEDEX ATTN CLAIMS [address] [place] [address] [phone] [id number] DOROTEO BERGMAN Self - patient is the insured Medical (General) History Medical History History ICD Code Palpitations, negative echo and monitor. Hypothyroidism Osteoporosis/Paget's disease Hyperlipidemia Colonoscopy 03/16, diverticulosis, five-y ear followup EGD, gastritis, no H. pylori. Surgical History Surgery Date(Month/Year) x 3 appendectomy blocked tear duct 2022
--- OUTSIDE RECORDS SUMMARY | 2025-02-02 08:50 | XMS_ITS ---
Author Organization [facility] Address [address] [place] [address] Care Team Providers Care Skin Lap Bonder Name Role Phone Benny Gamez MD Primary Care Provider Sage Archuleta Jr REASON FOR VISIT rescheduled her colon Encounters Encounter Location Date Provider Diagnosis [facility] [address] [place] [address] 12/01/2024 Sage Jaramillo Jr Plan Of Treatment Next Appt Details Provider Name:Sage raymond Jr, 02/21/2025 07:30:00 AM, [address] [place] [address] , [place], [place], [phone], Progress Notes * DOROTEO BERGMAN FDOB: (69 yo F)Acc No.[id number]:12/01/2024 Patient:?DOROTEO BERGMAN :1955???Age:69 Y???Sex:Female Address:[address] [place] [address] [place] [address] * true * Date:? Generated for Lizeti javier/Bobo/eTransmitting on:?02/02/2025 08:50 AM EST
--- OUTSIDE RECORDS SUMMARY | 2025-02-02 08:51 | XMS_ITS | Patient Health Record ---
Author Organization [facility] Address [address] [place] [address] Care Team Providers Care Order Analyst Name Role Phone GISEL WINTER M.D. Primary Care Provider Verena Blanca Unavailable [phone] Allergies Allergen (clinical drug ingredient) Drug/Non Drug Allergy documented on EMR Reaction Allergy Type Onset Date Status Substance with sulfonamide structure and antibacterial mechanism of action (substance) Sulfa Antibiotics Unknown Drug Allergy Active Results Component Value Reference Range Notes [id number] IGP No Culture 30 Plus Reviewed date:11/03/2024 08:03:37 AM Interpretation: Performing Lab:[facility] [place], [address], [address], [place], Phone - [phone], Director - [facility] Notes/Report: Clinical Information:[id number] Dates / Results....05/15/21 NEG HPV No. of [...] [address], [place], Phone - [phone], Director - [facility] Notes/Report: Clinical Information:[id number] Dates / Results....05/15/21 NEG HPV No. 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 (563399874163453) 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) Active confirmed Problem Osteoarthritis (227047846) Unspecified osteoarthritis, unspecified site (M19.90) Active confirmed Problem Menopause (367827743) Menopausal and female climacteric states (N95.1) Active confirmed Vital Signs Temperature 99.1 degrees Fahrenheit 10/25/2024 Blood pressure diastolic 80 mm Hg 10/25/2024 Height 62.75 in 10/25/2024 Blood pressure systolic 112 mm Hg 10/25/2024 Weight 143 lbs 10/25/2024 BMI 25.53 kg/m2 10/25/2024 Encounters Encounter Location Date Provider Diagnosis [facility] [address] [address] 10/25/2024 Verena García Encounter for gynecological examination (general) (routine) without abnormal findings Z01.419 ; Encounter for screening mammogram for malignant neoplasm of breast Z12.31 ; Lobular carcinoma in situ of unspecified breast D05.00 ; Age-related osteoporosis without current pathological fracture M81.0 and Postmenopausal atrophic vaginitis N95.2 [facility] [address] [place] [address] 08/05/2024 Verena García Assessments Encounter Date Diagnosis [...] Name:Verena Radha beltre, 11/01/2025 10:40:00 AM, [address] [facility], [address], [place], [address], Insurance Providers Payer Name Payer Address Payer Phone Subscriber Number Group Number Insured Name Patient Relationship to Insured Coverage Start Date Coverage End Date MEDICARE [address] [place] [id number] [phone] [id number] DOROTEO BERGMAN Self - patient is the insured MEDEX [address] [place] [address] [id number] DOROTEO BERGMAN Self - patient is [...]
--- OUTSIDE RECORDS SUMMARY | 2025-02-02 08:51 | XMS_ITS ---
Author Organization [facility] Address [address] [place] [id number] Care Team Providers Care Plaster Patternmaker Name Role Phone Benny Gamez MD Primary Care Provider Sage Archuleta Jr Allergies Allergen (clinical drug ingredient) Drug/Non Drug Allergy documented on EMR Reaction Allergy Type Onset Date Status Sulfa hives Drug Allergy Active REASON FOR VISIT Patient presents today for a SCREENING COLON Medications Medication SIG (Take, Route, Frequency, Duration) Notes Start Date End Date Status Levothyroxine Sodium Active MiraLax (colon prep) 8.3 ounce ((238) grams mixed with Gatorade or Crystal Light orally begin at 5:00 p.m. the day before the procedure for 1 day 10/20/2024 Active Problems Problem Type SNOMED Code ICD Code Onset Dates Problem Status W/U Status Risk Notes Problem 8394245 Chronic gastritis without bleeding, unspecified gastritis type (K29.50) Active confirmed Problem 565791957 Colon cancer screening (Z12.11) Active confirmed Vital Signs Blood pressure systolic 00 mm Hg 10/20/20 24 Blood pressure diastolic 00 mm Hg 024 Height 63.25 in 10/20/2024 Weight 141 lbs 10/20/2024 BMI 24.78 kg/m2 10/20/2024 Encounters Encounter Location Date Provider Diagnosis [facility] [address] [place] [phone] 10/20/2024 Sage Jaramillo Jr Chronic gastritis without bleeding, unspecified gastritis type K29.50 and Colon cancer screening Z12.11 Assessments Encounter Date Diagnosis (ICD Code) Assessment Notes Treatment Notes Treatment Clinical Notes Section Notes 10/20/2024 Chronic gastritis without bleeding, unspecified gastritis type (ICD-10 - K29.50) Currently, she is doing well. She is controlling her gastritis symptoms well with diet. We encouraged this. She is due for colorectal cancer screening. This will be arranged. She understands risks and benefits and agrees to proceed. 10/20/2024 Colon cancer screening (ICD-10 - Z12.11) Colonoscopy material was printed Currently, she is doing well. She is controlling her gastritis symptoms well with diet. We encouraged this. She is due for colorectal cancer screening. This will be arranged. She understands risks and benefits and agrees to proceed. Plan Of Treatment Medication Medication Name Sig [...] Up: 1 Year, Reason: Provider Name:Sage raymond , 02/21/2025 07:30:00 AM, [address] [place] [address] , [place], [place], [phone], Progress Notes * MARIANNE BERGMAN FDOB: (69 yo F)Acc No.[id number]:10/20/2024 Progress Notes Patient:?MARIANNE BERGMAN Provider:?Sage Jaramillo MD :1955???Age:69 Y???Sex:Female D ate:10/20/2024 Address:[address] [place], [place] [phone] Pcp:Benny Gamez MD Subjective: * Chief Complaints: * ???1. Patient presents today for a SCREENING COLON. * HPI: ???New symptom(s):? Marianne is a pleasant 69-year-old woman seen today in consultation. She has a history of gastroesophageal reflux disease and gastritis and underwent upper endoscopy in 2017. Biopsies were negative for H. pylori. Since that time, she's done well. She reports that she's had some upper GI symptoms where she felt like food would sit in the chest or upper abdomen. She's changed her diet and is following a more plan to place diet, and feels better. She did take omeprazole for a while, but has stopped this. She has no complaints of dysphagia. She has had some intermittent epigastric discomfort which has resolved. She has no hematemesis or melena. Weight and appetite have been stable. ?She last underwent colonoscopy in 2017, which showed diverticulosis. No polyps were identified. She is overdue for followup. She is no complaints of rectal bleeding or change in her bowel habits. She does have a family history of colon cancer. * ROS:?General/Constitutional:?Change in appetite?denies.?Fatigue?denies.?ENT:?Patient denies?difficulty swallowing.?Respiratory:?Patient denies?shortness of breath.?Cardiovascular:?Patient denies?chest pain.?Gastrointestinal:?Comments?See HPI for details.?Genitourinary:?Difficulty urinating?denies.?Incontinence?denies.?Musculoskeletal:?Patient denies?muscle aches.?Skin:?Patient denies?pruritis.?Neurologic:?Patient denies?low back pain.?Psychiatric:?Patient denies?mental or physical abuse.? * Medical History:?Palpitation s, negative echo and monitor., Hypothyroidism, Osteoporosis/Paget's disease, Hyperlipidemia, Colonoscopy 03/16, diverticulosis, five-year followup, EGD, gastritis, no H. pylori.. * Surgical History:? x 3 , appendectomy , blocked tear duct 2022. * Family History:?Father: dece ased, diagnosed with Heart disease, HTN (hypertension).?Mother: alive 95 yrs.?Siblings: , 2 brothers dx with colon cancer (1) dx with colon cancer at 48 and at age 51,(2) brother was dx in his mid 50, diagnosed with Colon cancer.? * Social History:?Tobacco Use:?Tobacco Use/Smoking?Patient is a: nonsmoker.?Drugs/Alcohol:?Alcohol Screen?Points: 2, Interpretation: Negative.?Miscellaneous:?Marital status: . 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 * Medications:?Taking Levothyr oxine Sodium , Discontinued Prempro , Discontinued Colyte with Flavor Packs 240 GM Solution Reconstituted As directed Orally Over the specified time., Medication List reviewed and reconciled with the patient * Allergies:?Sulfa: hives. Objective: * Vitals:?Wt: 141 lbs, Ht: 63. 25 in, BMI:24.78 Index, BP: 00/00 mm Hg. * Examination: ???General Examination: ?GENERAL APPEARANCE:?in no acute distress.?HEAD:?normocephalic.?EYES:?sclera non-icteric.?ORAL CAVITY:?mucosa moist.?NECK/THYROID:?no lymphadenopathy.?SKIN:?anicteric.?HEART:?S1, S2 normal, no murmurs.?LUNGS:?clear to auscultation bilaterally.?CHEST:?normal shape and expansion.?ABDOMEN:?soft, nontender, nondistended, bowel sounds present, no organomegaly .?EXTREMITIES:?no clubbing, cyanosis, or edema.?PSYCH:?cognitive function intact.? Assessment: * Assessment: 1.?Chronic gastritis without bleeding, unspecified gastritis type - K29.50 (Primary)?2.?Colon cancer screening - Z12.11? Currently, she is doing well . She is controlling her gastritis symptoms well with diet. We encouraged this. She is due for colorectal cancer screening. This will be arranged. She understands risks and benefits and agrees to proceed. Plan: * Treatment: 2.?Colon cancer screening?Procedure: COLONOSCOPY (Ordered for 10/20/2024) Notes: Colonoscopy material was printed?? * Procedure Codes:?3017F COLOR ECTAL CA SCREEN DOC REV, G9903 Pt scrn tbco id as non user, G9745 DOC RSN FOR NOT SCREEN/REC F/U HBP * Preventive Medicine:? ??Urinary Incontinence:?Urinary Incontinence?Assessment:?Absent,?Plan of care documented:?No, reason not specified.? ??Screenings:?Fall Risk Screening?Fall Risk Assessment:?No falls in the past year,?Screening:?No falls in the past year,?Assessment:?Not performed, no reason specified,?Plan of Care:?Not documented, no reason specified.? * Follow Up:?1 Year * * Sign off status: Completed true * Provider:?Sage Jaramillo MD Date:?1 12/20/2023 Generated for José herrera/Bobo/eTransmitting on:?02/02/2025 08:50 AM EST History and Physical Notes * HPI (History of Present Illness) Category Sub-Category Detail Notes Category Not es New symptom(s) Marianne is a pleasant 69-year-old woman seen today in consultation. She has a history of gastroesophageal reflux disease and gastritis and underwent upper endoscopy in 2017. Biopsies were negative for H. pylori. Since that time, she's done well. She reports that she's had some upper GI symptoms where she felt like food would sit in the chest or upper abdomen. She's changed her diet and is following a more plan to place diet, and feels better. She did take omeprazole for a while, but has stopped this. She has no complaints of dysphagia. She has had some intermittent epigastric discomfort which has resolved. She has no hematemesis or melena. Weight and appetite have been stable. She last underwent colonoscopy in 2017, which showed diverticulosis. No polyps were identified. She is overdue for followup. She is no complaints of rectal bleeding or change in her bowel habits. She does have a family history of colon cancer. Examination Category Sub-Category Detail Notes Category Not es General Examination GENERAL APPEARANCE: in no acute di stress HEAD: normocephalic EYES: sclera non-icteric NECK/THYROID: no lymphadenopathy HEART: S1, S2 normal, no mu rmurs CHEST: normal shape and exp ansion LUNGS: clear to auscultatio n bilaterally ABDOMEN: soft, nontender, non distended, bowel sounds present, no organomegaly SKIN: anicteric EXTREMITIES: no clubbing, cyanosi s, or edema PSYCH: cognitive function i ntact ORAL CAVITY: mucosa moist
[2025-02-17 09:31] VITALS: BMI 24.8
[2025-02-21 06:47] VITALS: BMI 24.4
[2025-02-21 07:05] VITALS: BP 127/69; PULSE 75; RESP 16; TEMP 36.5; O2SAT 99
[2025-02-21] MEDS: Lactated Ringers 1,000 ML 80 ML IVCONT (07:06)
--- NOTE | 2025-02-21 07:34 | P.CONAN_ITS ---
HPI - Anesthesia Eval Consult details Narrative: 69 yo female patient for Colonoscopy PMFSH Active Problems Active Problems: All Active Problems Arthritis of carpometacarpal (CMC) joint of right thumb (Acute) Trigger finger of right thumb (Acute) Osteoporosis (Acute) Paget disease of bone (Acute) Occ. palpitations Past Medical History Medical History HLD (hyperlipidemia) History of palpitations Diverticulosis Hx of gastritis GERD (gastroesophageal reflux disease) Hypothyroidism Family History Family History Brother Colon cancer Brother Colon cancer Father Heart disease Family history of problems with anesthesia: No Surgical History Surgical History Hx of appendectomy History of Hx of colonoscopy (2017) History of esophagogastroduodenoscopy (EGD) (2017) History of Problems with Anesthesia: No Social History Social History Patient Tobacco Use Status: Never used Tobacco e-Cigarette/Vaping Use: Never Used Second Hand Smoke Exposure: No Current occupational status: employed 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 Allergies Allergy/AdvReac Type Severity Reaction Status Date / Time Sulfa (Sulfonamide Allergy Intermediate HIVES, Verified 06/05/21 15:17 Antibiotics) rash, facial swelling Active Medications: Current Medications Lactated Ringer's (Lr) 1,000 mls @ 80 mls/hr IVCONT .[id number] DEREJE Last Admin: 02/21/25 07:06 Dose: 80 mls/hr Home Medications ?Medication ?Instructions ?Recorded ?Confirmed ?Last Taken ?Type ibuprofen 400 mg tablet 400 mg PO Q8H PRN Pain, Mild 05/09/21 02/21/25 02/14/25 History levothyroxine 25 mcg capsule 25 mcg PO DAILY 05/09/21 02/21/25 02/21/25 History Exam Height,Weight and Vital Signs: Height 5 ft 3.25 in Weight 63.1 kg Last Vital Signs Temp 97.7 F 02/21/25 07:05 Pulse 75 02/21/25 07:05 Resp 16 02/21/25 07:05 BP 127/69 02/21/25 07:05 Pulse Ox 99 02/21/25 07:05 O2 Del Method Room Air 02/21/25 07:05 Airway Mallampati Class: II (Slight overbite) TM Dist: >3cm Neck ROM: Full Partial: Lower Loose/Missing/Broken Teeth: Yes (Denies broken or loose teeth) Heart: RRR Lungs: CTAB Assessment and Plan Assessment Anesthesia Assessment: Anesthesia Plan Discussed and Chart Reviewed Final Anesthetic Review Family History of Problems with Anesthesia: No History of Problems with Anesthesia: No NPO: Yes ASA Class: II Final Preanesthetic Review: No Changes in Pt Med Stat, Meds/Allgs Chart Re viewed, Consent Obtained/Reviewed and Anes Risks/Benef Reviewed Patient Risk: Low Procedure Risk: Low Assessment/Block/Sedation in SS: Assess/Block/Sedation-SS Anesthetic Plan Anesthetic Plan: TIVA Disposition: Standard PACU
--- NOTE | 2025-02-21 07:37 | P.HPSUR_ITS ---
Pre-Procedural Eval Section A - 24 Hr Update-Section A only Date of Service: 02/21/25 Section B - Complete if H&P > 30 days Chief Complaint: Encounter for screening for malignant neoplasm of Details of Present Illness: see H&P no changes Relevant Family History (Specify if Yes): No Relevant Social History: None Present Medications: see Short Stay Collaborative assessment Medical History: No relevant PMH History of Previous Operations: No relevant previous surgery Allergies: Allergies Allergy/AdvReac Type Severity Reaction Status Date / Time Sulfa (Sulfonamide Allergy Intermediate HIVES, Verified 06/05/21 15:17 Antibiotics) rash, facial swelling Review of Systems Sugical H&P ROS: Negative: Constitution, Cardiovascular, Respiratory, Neurological, Psychiatric, Hem-Onc, Allergic/Immunologic, Gastrointestinal, Gen itourinary, Musculoskeletal, Integumentary, Endocrine and Eyes/Ears/Nose/Throat Exam Surgical H&P Exam: Normal: HEENT, Normal: Heart, Normal: Lungs, Normal: Extremities, Normal: Abdomen, Normal: Skin and Normal: Neurological Plan Diagnosis/Plan: Unchanged I have reviewed the history and physical and performed a pertinent physical examination on my patient. No changes have occurred unless specified. Time Spent With Patient Time: Total time managing care of this patient today ____ minutes.
[2025-02-21 08:19] VITALS: BP 99/54; PULSE 66; RESP 18; TEMP 36.1; O2SAT 97
--- NOTE | 2025-02-21 08:36 | OP_ITS ---
DATE OF SERVICE: 02/21/2025 SURGEON: Sage Jaramillo MD INDICATIONS: Colon cancer screening. PREOPERATIVE DIAGNOSIS: POSTOPERATIVE DIAGNOSIS: PROCEDURE PERFORMED: Colonoscopy to the terminal ileum with snare polypectomy. ESTIMATED BLOOD LOSS: COMPLICATIONS: ANESTHESIA: Monitored anesthesia care. ASSISTANTS: SPECIMENS: DESCRIPTION OF PROCEDURE: A history and physical were performed. The risks and benefits of the procedure were explained to the patient, and informed consent was obtained. The patient was placed in the left lateral decubitus position. A digital rectal exam was performed and was found to be normal. The Olympus pediatric video colonoscope was introduced into the rectum and advanced to the cecum. The cecum was identified by transillumination, palpation, and identification of ileocecal valve. Examination was performed and the scope was removed. She tolerated the procedure well and was taken to recovery area in stable condition. FINDINGS: The terminal ileum was examined and appeared normal. The visualized colonic mucosa was normal. The quality of the prep was good. Two polyps were identified; both measured less than 10 mm and removed with a cold snare, one was located in the hepatic flexure and one was located in the rectum. There was moderate sigmoid diverticulosis. Retroflexed examination showed some small internal hemorrhoids. IMPRESSION: Colon polyps. RECOMMENDATION: Follow up the biopsy results. MD HERBERT Grover/MARYL / [id number]
== END 2025-02-21 08:51 | disposition home or self-care (01) ==
PROVIDERS: PCP Internal Medicine; Visit Provider Internal Medicine Gastroenterology
PROC: 0DJD8ZZ Inspection of Lower Intestinal Tract, Via Natural or Artificial Opening Endoscopic (ICD-10-PCS; CPT 45378; principal; 2025-02-21 07:30)
DX: Z12.11 Encounter for screening for malignant neoplasm of colon (principal); Z80.0 Family history of malignant neoplasm of digestive organs; D12.3 Benign neoplasm of transverse colon; D12.8 Benign neoplasm of rectum; K57.30 Diverticulosis of large intestine without perforation or abscess without bleeding; K64.8 Other hemorrhoids; K21.9 Gastro-esophageal reflux disease without esophagitis; Z87.19 Personal history of other diseases of the digestive system; R00.2 Palpitations; E03.9 Hypothyroidism, unspecified; M81.0 Age-related osteoporosis without current pathological fracture; E78.5 Hyperlipidemia, unspecified; Z79.899 Other long term (current) drug therapy; Z79.1 Long term (current) use of non-steroidal anti-inflammatories (NSAID); Z88.2 Allergy status to sulfonamides
CPT/HCPCS: 45385; 88305; J2003; J2704

== ENCOUNTER 2025-08-29 10:14 | Outpatient (AMB) | payer MEDICARE, SELFPAY ==
--- OUTSIDE RECORDS SUMMARY | 2024-12-09 05:50 | XMS_ITS ---
Author Organization [facility] Address [address] [place] [id number] Care Team Providers Care Silver Buffer Name Role Phone Franco (RETIRED) Benny DE LA ROSA Primary Care Provide Sage Swanson Jr REASON FOR VISIT screening Encounters Encounter Location Date Provider Diagnosis [facility] Outpatient [address] [place] [phone] 12/09/2024 Sage Jaramillo Jr Plan Of Treatment No Information Progress Notes * DOROTEO BERGMAN FDOB: (70 yo F)Acc No.[id number]:12/09/2024 COLON WITH MAC Patient: DOROTEO GA Provider: Priyanka Jaramillo MD :[id number] A ge:69 Y S ex:Female Date:12/09/2024 Address:[address] [place], [place] [id number] Pcp:Benny Gamez (RETIRED )MD Subjective: * Chief Complaints: * 1 . Screening. * Medical History: Objective: * Vitals: Assessment: Plan: * Treatment: * * The named appointment provid er may or may not be the originator of this progress note, and it is not deemed complete until electronically signed by the appointment provider. Sign off status: Pending * Provider: Priyanka Jaramillo MD Date: 0 12/09/2024 Generated for Printi ng/Faxing/eTransmitting on: 0 08/29/2025 11:18 AM EDT
--- OUTSIDE RECORDS SUMMARY | 2025-02-21 03:30 | XMS_ITS ---
Author Organization [facility] Address [address] [place] [phone] Care Team Providers Care Customer Training Specialist Name Role Phone Franco (RETIRED) Benny DE LA ROSA Primary Care Provide Sage Swanson Jr [phone] REASON FOR VISIT screening Encounters Encounter Location Date Provider Diagnosis [facility] Outpatient [address] [place] [phone] 02/21/2025 Sage Jaramillo Jr Colon cancer screening Z12.11 ; Family history of colon cancer Z80.0 and Colon polyps K63.5 Assessments Encounter Date Diagnosis (ICD Code) Assessment Notes Treatment Notes Treatment Clinical Notes Section Notes 02/21/2025 Colon cancer screening (ICD-10 - Z12.11) 02/21/2025 Family history of colon cancer (ICD-10 - Z80.0) 02/21/2025 Colon polyps (ICD-10 - K63.5) Plan Of Treatment No Information Progress Notes * DOROTEO BERGMAN FDOB: (70 yo F)Acc No.[id number]:02/21/2025 COLON WITH MAC Patient: DOROTEO GA Provider: Priyanka Jaramillo MD :1955 A ge:69 Y S ex:Female Date:02/21/2025 Address:[address] [place], [place] [phone] Pcp:Benny Gamez (RETIRED )MD Subjective: * Chief Complaints: * 1 . Screening. * Medical History: Objective: * Vitals: Assessment: * Assessment: 1. C olon cancer screening - Z12.11 (Primary) 2 . F amily history of colon cancer - Z80.0 3 . C olon polyps - K63.5 Plan: * Treatment: * Procedure Codes: G 0105 COLOREC CANCR SCR; COLNSCPY HI RISK, 29604 LESION REMOVAL COLONOSCOPY, 0529F INTRVL 3+YRS PTS CLNSCP DOCD * * The named appointment provid er may or may not be the originator of this progress note, and it is not deemed complete until electronically signed by the appointment provider. Sign off status: Pending * Provider: Priyanka Jaramillo MD Date: 0 02/21/2025 Generated for José herrera/Bobo/Lucienitting on: 0 08/29/2025 11:18 AM EDT
--- NOTE | 2025-08-29 10:24 | MHC.PC.OV ---
Vital Signs 08/29/25 10:29 Height 5 ft 3.5 in Weight 63.049 kg BMI 24.2 BP 118/72 Pulse 70 Pulse Source Pulse Oximeter Temp 98.5 F Temp Source Temporal Artery Scan Pulse Oximetry (%) 98 Oxygen Delivery Method Room Air Intake Visit Reasons: Routine/ Dr Gamez Justice Professor Required: No Accompanied by: Self / Same As Patient Allergies Sulfa (Sulfonamide Antibiotics) Allergy (Intermediate, Verified 08/29/25 10:24) HIVES, rash, facial swelling Medication List - Last Reconciled 08/29/25 by BINTA Lafleur ibuprofen 400 mg PO Q8H PRN levothyroxine 25 mcg PO DAILY 90 days Tobacco use date assessed: 08/29/25 Fall risk assessment: No Falls in past year Last assessed Fall Risk: 08/29/25 Dental Screening Dental Screen Date: 08/29/25 Did you have a dental visit in the last 12 months?: Yes Did you have a dental problem in the last 6 months where you did not have access to dental care?: No Was dental information given to patient?: No HPI HPI Comments History of Present Illness Details 70-year-old female with history of Paget's disease, hypothyroidism, history of breast cancer, osteoporosis, palpitations, diverticulosis, hyperlipidemia, GERD presenting to the office today for annual physical exam and to establish care. She currently lives alone. 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 Rare alcohol use. No cigarette smoking. No illicit drug use or marijuana use. She had been exercising and following a healthy diet. However following the of her about 1 year ago, became more sedentary with less healthy diet. She has recently started using her treadmill again as well as weights. She does have good supports with her children and grandchildren as well as her sisters. Not following with a group or therapist. Paget's disease/Osteoporosis-last bone density 11/2023, lowest T-score-2.6 in lumbar spine. Paget's disease right hip. Was on reclast for 3 years. 2 year holiday ending next month. [facility] Hyperlipidemia- LDL 146. Hypothyroidism- on levothyroxine 25mcg daily History L breast cancer- s/p lumpectomy Dr. Ford. No chemo or radiation. Annual mammos Palpitations- after COVID vaccine, ongoing. Occ. Had echo at [facility], will request records Blocked tear duct-following at [facility], recently had a noninvasive surgery to clear duct. CT of the face showed a lucency around to of her molars. She then followed up with her dentist and ultimately had 2 root canals 1 year later. Question whether this is related to bisphosphonate use Health maintenance: Last DEXA scan 11/2023, will be next performed in 11/2025-following with Rheumatology-at that time, we will consider resuming Reclast Last screening colonoscopy 01/2025, 5 year follow-up advised. Dr. Jaramillo Last mammogram 12/2024 1 year follow-up advised Reviewed past medical, surgical, family, social history ROS: General: No fevers, malaise, unintentional weight loss HEENT: No blurred vision, diplopia. No sore throat, nasal congestion, rhinorrhea, sinus pain, ear pain. No hearing loss Neck - no adenopathy Cardiovascular: No chest pain or leg edema. See hpi Respiratory: No shortness of breath, wheezing, cough Breast: No pain, palpable lumps, nipple inversion GI: No dysphagia, odynophagia, globus sensation. No abdominal pain, nausea, vomiting, diarrhea, constipation, melena, hematochezia : No dysuria, hematuria, increased urinary frequency, decreased urinary output. DENTAL TECHNOLOGY ADVISOR: No abn vaginal bleeding or discharge MSK: No myalgia, back pain, arthralgias Neuro: No headaches, weakness, paresthesias. see hpi Psych: no depression/anxiery. No AH/VH. No SI/HI Skin: No rashes or lesions EXAM: Constitutional - Awake and Alert, No apparent distress Eyes - PERRLA, EOMI. Anicteric Ears - external ears normal, canals clear, TMs intact and pearly rouse with good cone of light Nose- septum midline, nares clear, no sinus tenderness Mouth/throat- mucosa moist, tongue and uvula midline, no erythema/edema or tonsillar adenopathy. Neck-trachea midline, thyroid symmetric without palpable nodules, no adenopathy Cardiovascular - S1S2, RRR, No edema Respiratory - Normal lung expansion, Normal respiratory effort, No respiratory distress, CTA bilaterally Gastrointestinal - NT / ND; +BS; No rebound or guarding - No CVA tenderness Extremities - no calf tenderness bilaterally, no swelling Musculoskeletal - Normal inspection, normal ROM Skin - Warm/Dry, no concerning lesions Neurological - Alert & oriented x3, CN II-XII in tact, 5/5 strength BUE and BLE, 2+ patellar reflexes, sensation intact Psychological - Appropriate affect PFSH Medical History HLD (hyperlipidemia) History of palpitations Diverticulosis Hx of gastritis GERD (gastroesophageal reflux disease) Hypothyroidism Surgical History Hx of appendectomy History of Hx of colonoscopy (2017) History of esophagogastroduodenoscopy (EGD) (2017) Family History Brother Colon cancer, Onset Age: 51 Brother Colon cancer, Onset Age: 65 Father Heart disease Social History Housing: House Patient Tobacco Use Status: Never used Tobacco e-Cigarette/Vaping Use: Never Used Second Hand Smoke Exposure: No service: No Current occupational status: employed 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 1. Little interest or pleasure in doing things: not at all 2. Feeling down, depressed, or hopeless: not at all 3. Trouble falling or staying asleep, or sleeping too much: not at all 4. Feeling tired or having little energy: not at all 5. Poor appetite or overeating: not at all 6. Feeling bad about yourself - or that you are a failure or have let yourself or your family down: not at all 7. Trouble concentrating on things, such as reading the newspaper or watching television: not at all 8. Moving or speaking so slowly that other people could have noticed. Or the opposite - being so fidgety or restless that you have been moving around a lot more than usual: not at all 9. Thoughts that you would be better off or of hurting yourself in some way: not at all Total score: 0 Depression Screening Interpretation: Negative Depression Screening Done: Yes 62146 - PHQ-9 Billing: Yes Source: Developed by Drs. Sumanth Cotto, Lewis Morgan and colleagues, with an educational sam from [employer]. Thrive Questionnaire Date Thrive assessed: 08/29/25 I am a: Patient What is your living situation today?: I have a steady place to live Within the past 12 months, did the food you bought not last and you didn't have the money to get more?: Never true Within the past 12 months, did you worry whether your food would run out before you got money to buy more?: Never true Do you have trouble paying for medicines?: No Do you have trouble getting transportation to medical appointments?: No Do you have trouble paying your heating and electricity bill?: No Do you have trouble taking care of your child, family member or friend?: No Do you have trouble with day-to-day activities such as bathing, preparing meals, shopping, managing finances, etc.?: No Are you currently unemployed and looking for a job?: No Are you interested in more education?: No Please select the resources that you would like help with: None THRIVE Score: 0 MORENO-7 AMB Questionnaire MORENO-7 Date MORENO - 7 assessed: 08/29/25 Feeling nervous, anxious, or on edge: 1 = Several days Not being able to stop or control worryin = Not at all Worrying too much about different things: 1 = Several days Trouble relaxin = Not at all Being so restless that it is hard to sit still: 0 = Not at all Becoming easily annoyed or irritable: 0 = Not at all Feeling afraid as if something awful might happen: 1 = Several days Total MORENO-7 score (0-4 normal; 5-9 mild; 10-14 moderate; 15-21 severe): 3 Source: Developed by Drs. Sumanth Cotto, Lewis Morgan and colleagues, with an educational sam from [employer]. MORENO-7 Assessment Billing MORENO-7 Assessment Tool: MORENO-7 Assessment 35092 Physical exam (Primary Care) Vital Signs: Last Vital Signs Temp 98.5 F 08/29/25 10:29 Pulse 70 08/29/25 10:29 BP 118/72 08/29/25 10:29 Pulse Ox 98 08/29/25 10:29 Oxygen Delivery Method Room Air 08/29/25 10:29 BMI result Body Mass Index 24.2 Tobacco/Smoking Status: Tobacco use Status Tobacco use date assessed 08/29/25 08/29/25 10:31 Patient Tobacco Use Status Never used Tobacco 08/29/25 10:26 e-Cigarette/Vaping Use Never Used 08/29/25 10:26 PHQ-9: PHQ-9 Score PHQ-9: Total score 0 08/29/25 11:02 Depression Screening Interpretation: Negative Thrive Assessment: Date of Thrive Assessment Date Thrive assessed 08/29/25 08/29/25 10:34 Coding Level of Care Code New Pt Prev Care >65yr (43886) Diagnoses Routine medical exam Z00.00 Paget disease of bone M88.9 Hypothyroidism E03.9 Osteoporosis M81.0 HLD (hyperlipidemia) E78.5 Additional Codes MORENO-7 Assessment Billing - MORENO-7 Assessment Tool: MORENO-7 Assessment 78954 ([id number]) PHQ-9 - 75754 - PHQ-9 Billing: Yes ([id number]) Assessment & Plan Assessment & Plan (1) Routine medical exam: Code(s): Z00.00 - Encounter for general adult medical examination without abnormal findings Category: Medical Plan: 62-year-old female presenting for annual physical exam. Plan as below (2) Paget disease of bone: Code(s): M88.9 - Osteitis deformans of unspecified bone Category: Medical Plan: Manageable. Continue following with rheumatology. Consider resuming (3) Hypothyroidism: Code(s): E03.9 - Hypothyroidism, unspecified Category: Medical Plan: TSH with reflex free T4 ordered. Continue levothyroxine 25 mcg daily (4) Osteoporosis: Code(s): M81.0 - Age-related osteoporosis without current pathological fracture Category: Medical Plan: Continue following with Rheumatology. DEXA scan due to be completed in 11/2025 at which time decision will be made as to whether or not bisphosphonate therapy will be resumed. Continue with calcium, vitamin-D and weight-bearing exercise (5) HLD (hyperlipidemia): Code(s): E78.5 - Hyperlipidemia, unspecified Category: Medical Plan: Uncontrolled. She would like to continue working on lifestyle modification as she had a labs and routine following the of her . Will recheck lipid profile in 6 months and calculate ASCVD risk score pending results of studies. At that time, can discuss initiating medication if indicated Plan Follow-up in the office in 1 year Obtaining most recent specialist records as well as most recent echo and Holter monitor Routine screening labs as ordered below. Reviewed recent labs from [facility] Continue with screening mammograms, Pap smears, colonoscopies Continue following for annual skin exams and use sun protection Annual eye exams Wear seat belt in car Recommend regular exercise and healthy diet Orders: Orders TSH reflex Free T4 Today E03.9 - Hypothyroidism, unspecified, E78.5 - Hyperlipidemia, unspecified, M81.0 - Age-related osteoporosis without current pathological fracture, M88.9 - Osteitis deformans of unspecified bone, R73.01 - Impaired fasting glucose Basic Metabolic Panel 6 Months E03.9 - Hypothyroidism, unspecified, E78.5 - Hyperlipidemia, unspecified, M81.0 - Age-related osteoporosis without current pathological fracture, M88.9 - Osteitis deformans of unspecified bone Lipid Panel 6 Months E03.9 - Hypothyroidism, unspecified, E78.5 - Hyperlipidemia, unspecified, M81.0 - Age-related osteoporosis without current pathological fracture, M88.9 - Osteitis deformans of unspecified bone TSH reflex Free T4 6 Months E03.9 - Hypothyroidism, unspecified, E78.5 - Hyperlipidemia, unspecified, M81.0 - Age-related osteoporosis without current pathological fracture, M88.9 - Osteitis deformans of unspecified bone Hemoglobin A1c Today E03.9 - Hypothyroidism, unspecified, E78.5 - Hyperlipidemia, unspecified, M81.0 - Age-related osteoporosis without current pathological fracture, M88.9 - Osteitis deformans of unspecified bone, R73.01 - Impaired fasting glucose Liver Panel 6 Months E03.9 - Hypothyroidism, unspecified, E78.5 - Hyperlipidemia, unspecified, M81.0 - Age-related osteoporosis without current pathological fracture, M88.9 - Osteitis deformans of unspecified bone Vitamin D 25-OH Total 6 Months E03.9 - Hypothyroidism, unspecified, E78.5 - Hyperlipidemia, unspecified, M81.0 - Age-related osteoporosis without current pathological fracture, M88.9 - Osteitis deformans of unspecified bone Complete Blood Count Auto Diff 6 Months E03.9 - Hypothyroidism, unspecified, E78.5 - Hyperlipidemia, unspecified, M81.0 - Age-related osteoporosis without current pathological fracture, M88.9 - Osteitis deformans of unspecified bone
[2025-08-29 10:29] VITALS: BP 118/72; PULSE 70; TEMP 36.9; O2SAT 98; BMI 24.2
--- OUTSIDE RECORDS SUMMARY | 2025-08-29 11:18 | XMS_ITS | Encounter Summary ---
Author Organization [facility] Address [address] [facility] [address] [place] [address] Phone Care Team Providers Care Application Development Consultant Name Role Phone Benny Gamez MD Primary Care Provider Encounter Details Date Type Department Care Team (Late st Contact Info) Description 07/07/2024 Procedure Pass [facility], [address] [address] Social History Tobacco Use Types Packs/Day Years Used Date Smoking Tobacco: Never Smokeless Tobacco: Never Alcohol Use Standard Drinks/Week Comments Yes 0 (1 standard drink = 0.6 oz pur e alcohol) occasional Education Answer Date Recorded Are you interested in more education? Not on carlitos e 03/26/2023 Are you concerned about learning? Not on file 03/26/2023 No 03/26/2023 No 03/26/2023 Digital Access Answer Date Recorded No 04/27/2023 No 04/27/2023 Reliable internet access at home? Not on file 04/27/2023 Device with a working camera? Not on file Intimate Partner Violence Answer Date R ecorded Are you denied basic needs s uch as food, clothing, or medical care? No 02/18/2024 In the past 12 months have y ou been in a relationship with a person who hurts, threatens, or tries to control you? No 02/18/2024 Are you denied basic needs s uch as food, clothing, or medical care? No 02/18/2024 In the past 12 months have y ou been in a relationship with a person who hurts, threatens, or tries to control you? No 02/18/2024 Comments No Sex and Gender Information Value Date Recorded Sex Assigned at Female 11/11/2022 3:46 PM EST Legal Sex Female 3:37 PM EST Gender Identity Female 11/11/2022 3:46 PM EST Sexual Orientation Straight 11/11/2022 3: 46 PM EST documented as of this encounter Plan of Treatment Upcoming Encounters Date Type Department Care Team (Latest Contact Info) Description 08/21/2026 4:30 PM EDT Telemedicine - audio only [facility] Rheumatology at [address] [address] Catherine Moraes MD, PhD [address] [place] [address] [email or web address] documented as of this encounter Visit Diagnoses Not on filedocumented in this encounter Care Teams Application Development Consultant Relationship Specialty Start Date End Date Benny Gamez MD [address] [place] [address] [place] [address] PCP - General Internal Medicine 11/11/22 documented as of this encounter Additional Source Comments The information contained in this document represents components of the legal health record. It is not the complete legal health record.[facility]
--- OUTSIDE RECORDS SUMMARY | 2025-08-29 11:18 | XMS_ITS | Patient Health Record ---
Author Organization [facility] Address [address] [place] [address] Care Team Providers Care Television Production Technician Name Role Phone Franco (RETIRED) Benny DE LA ROSA Primary Care Provide Sage Swanson Jr Unavailable [phone] Allergies Allergen (clinical drug ingredient) Drug/Non Drug Allergy documented on EMR Reaction Allergy Type Onset Date Status Sulfa hives Drug Allergy Active Results Component Value Reference Range Notes Pathology Reviewed date:02/22/2025 11:11:51 PM Interpretation: Performing Lab:[facility], [address] [place] [phone] Notes/Report: Reason For Referral No Information Medications Medication [...] Problem Status W/U Status Risk Notes Problem 724815969 Colon cancer screening (Z12.11) Active confirmed Problem 68357185 Epigastric pain (R10.13) Active confirmed Problem 427122132 Family history of colon cancer (Z80.0) Active confirmed Problem 7362114 Chronic gastritis without bleeding, unspecified gastritis type (K29.50) Active confirmed Vital Signs Blood pressure diastolic 00 mm Hg 10/20/2024 Height 63.25 in 10/20/2024 Blood pressure systolic 00 mm Hg 10/20/2024 Weight 141 lbs 10/20/2024 BMI 24.78 kg/m2 10/20/2024 Encounters Encounter Location Date Provider Diagnosis [facility] Outpatient [address] [place], [place] [phone] 02/21/2025 Sage Jaramillo Jr Colon cancer screening Z12.11 ; Family history of colon cancer Z80.0 and Colon polyps K63.5 [facility] [address] [place] [phone] 10/20/2024 Sage Jaramillo Jr Chronic gastritis without bleeding, unspecified gastritis type K29.50 and Colon cancer screening Z12.11 [facility] [address] [place] [phone] 12/01/2024 Sage Jaramillo Jr [facility] [address] [place] [phone] 02/22/2025 Sage Jaramillo Jr Assessments Encounter Date Diagnosis (ICD Code) Assessment Notes Treatment Notes Treatment Clinical Notes Section Notes 02/21/2025 Colon cancer screening (ICD-10 - Z12.11) 02/21/2025 Family history of colon cancer (ICD-10 - Z80.0) 10/20/2024 Colon cancer screening (ICD-10 - Z12.11) [...] risks and benefits and agrees to proceed. 02/21/2025 Colon polyps (ICD-10 - K63.5) Plan Of Treatment Future Test Test Name Order Date UPPER GI ENDOSCOPY 09/03/2016 COLONOSCOPY 09/03/2016 COLONOSCOPY 10/20/2024 Insurance Providers Payer Name Payer Address Payer Phone Subscriber Number Group Number Insured Name Patient Relationship to Insured Coverage Start Date Coverage End Date MEDICARE OF NURY GOO[place] [address] [place] [address] [phone] [id number] DOROTEO BERGMAN Self - patient is the insured MEDEX ATTN CLAIMS [address] [place] [address] [id number] DOROTEO BERGMAN Self - patient is the insured Medical (General) History Medical History History ICD Code Palpitations, negative echo and monitor. Hypothyroidism Osteoporosis/Paget's disease Hyperlipidemia Colonoscopy 03/16, diverticulosis, five-y ear followup EG, gastritis, no H. pylori. Surgical History Surgery Date(Month/Year) x 3 appendectomy blocked tear duct 2022
--- OUTSIDE RECORDS SUMMARY | 2025-08-29 11:18 | XMS_ITS | Patient Health Record ---
Author Organization [facility] Address [address] [place] [address] Care Team Providers Care Installation Manager Name Role Phone GISEL WINTER M.D. Primary Care Provider Verena Blanca Unavailable [phone] Allergies Allergen (clinical drug ingredient) Drug/Non Drug Allergy documented on EMR Reaction Allergy Type Onset Date Status Substance with sulfonamide structure and antibacterial mechanism of action (substance) Sulfa Antibiotics Unknown Drug Allergy Active Results Component Value Reference Range Notes [id number] IGP No Culture 30 Plus Reviewed date:11/03/2024 08:03:37 AM Interpretation: Performing Lab:[facility] [place], [address], [address], [place], Phone - [phone], Director - [facility] Notes/Report: Clinical Information:[id number] Dates / Results....05/15/21 NEG HPV No. of [...] [address], [address], [place], Phone - [phone], Director - [facility] Notes/Report: Clinical Information:[id number] Dates / Results....05/15/21 NEG HPV No. of containers..01 ThinPrep Vial Reason For Referral No Information Medications Medication SIG (Take, Route, Frequency, Duration) Notes Start Date End Date Status Levothyroxine Sodium 25 MCG TAKE 1 TABLE T BY MOUTH DAILY Oral; Duration: 90 Active Estradiol Vaginal Cream 0.01% 1 Gram to the affected area Vaginal/Vulva Twice a week; Duration: 90 Days 10/25/2024 Active Calcium + D3 [...] Status Risk Notes Problem Postmenopausal atrophic vaginitis (45517540) Postmenopausal atrophic vaginitis (N95.2) Active confirmed Problem Age-related osteoporosis (066615274) Age-related osteoporosis without current pathological fracture (M81.0) Active confirmed Problem Hypothyroidism (14880515) Hypothyroidism, unspecified (E03.9) Active confirmed Problem Malignant neoplasm of overlapping sites of left female breast (C50.812) Active confirmed Problem Carcinoma in situ of breast (161165946) Lobular carcinoma in situ of unspecified breast (D05.00) Active confirmed Problem 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 (491058790516489) 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] Screening 10/25/2024 Next Appt Details Provider Name:Verena beltre, 11/01/2025 10:40:00 AM, [address] [employer] [facility], [address], [place], [address], Insurance Providers Payer Name Payer Address Payer Phone Subscriber Number Group Number Insured Name Patient Relationship to Insured Coverage Start Date Coverage End Date MEDICARE [address] [place] [id number] DOROTEO BERGMAN Self - patient is the insured MEDEX [address] [place] [address] [id number] DOROTEO BERGMAN Self - patient is [...]
--- OUTSIDE RECORDS SUMMARY | 2025-08-29 11:18 | XMS_ITS | Encounter Summary ---
Author Organization [facility] Address [address] [facility] [address] [place] [address] Phone Care Team Providers Care Clinical Data Programmer Name Role Phone Benny Gamez MD Primary Care Provider Encounter Details Date Type Department Care Team (Late st Contact Info) Description 03/21/2023 Procedure Pass [facility] [address] [place] [address] Social History Tobacco Use Types Packs/Day Years Used Date Smoking Tobacco: Former Cigarettes Smokeless Tobacco: Never Comments Unknown Sex and Gender Information Value Date Recorded Sex Assigned at Female 11/11/2022 3:46 PM EST Legal Sex Female 3:37 PM EST Gender Identity Female 11/11/2022 3:46 PM EST Sexual Orientation Straight 11/11/2022 3: 46 PM EST documented as of this encounter Plan of Treatment Upcoming Encounters Date Type Department Care Team (Latest Contact Info) Description 08/21/2026 4:30 PM EDT Telemedicine - audio only [facility] Rheumatology at [address] [address] Catherine Moraes MD, PhD [address] [place] [address] [email or web address] documented as of this encounter Visit Diagnoses Not on filedocumented in this encounter Care Teams Clinical Data Programmer Relationship Specialty Start Date End Date Benny Gamez MD [address] [place] [address] [place] [address] PCP - General Internal Medicine 11/11/22 documented as of this encounter Additional Source Comments The information contained in this document represents components of the legal health record. It is not the complete legal health record.[facility]
--- OUTSIDE RECORDS SUMMARY | 2025-08-29 11:18 | XMS_ITS | Patient Health Record ---
Author Organization [facility] Federica colon [place] Address [address] [place] [address] Care Team Providers Care Clipper Counters Name Role Phone Benny Gamez MD Primary Care Provider Unavaila ble Black, Lizz Unavailable [phone] Allergies Allergen (clinical drug ingredient) Drug/Non Drug Allergy documented on EMR Reaction Allergy Type Onset Date Status sulfamethoxazole / trimethoprim Bactrim Sulfa- hives Drug Allergy Active Reason For Referral No Information Medications Medication SIG (Take, Route, Frequency, Duration) Notes Start Date End Date Status Levothyroxine Sodium 25 MCG Orally Active Social History Tobacco Use: Social History Observation Description Date Details (start date - stop date) Former Smoker NA - NA Tobacco Use/Smoking Question Answer Notes Are you a: former smoker Additional Findings: Tobacco Non-User Current no n-smoker Alcohol Screen Question Answer Notes Did you have a drink containing alcohol in the p ast year? Yes Points 0 Interpretation Negative Tobacco use other than smoking: Question Answer Notes Are you an other tobacco user? No Problems Problem Type SNOMED Code ICD Code Onset Dates Problem Status W/U Status Risk Notes Problem Acquired hammer toe of right foot ([id number] 9105) Other hammer toe(s) (acquired), right foot (M20.41) Active confirmed Problem PlantarFlexion o f metatarsal of right foot (M21.6X1) Active confirmed Plan Of Treatment No Information Insurance Providers Payer Name Payer Address Payer Phone Subscriber Number Group Number Insured Name Patient Relationship to Insured Coverage Start Date Coverage End Date Blue Benefits [address] [address] [place] [address] [id number] Marianne Abrams Self - patient is the insured Medical (General) History Medical History History ICD Code Broken bones thyroid Measles Chicken pox Surgical History Surgery Date(Month/Year) appendectomy 1958 05/03/82, 07/08/85, Hospitalization History Reason Date(Month/Year) [facility] [place]- Fractured left medial malliotis 2019
--- OUTSIDE RECORDS SUMMARY | 2025-08-29 11:19 | XMS_ITS | Encounter Summary ---
Author Organization [facility] Address [address] [facility] [address] [place] [phone] Phone Care Team Providers Care Supervisory Examiner Name Role Phone Benny Gamez MD Primary Care Provider Encounter Details Date Type Department Care Team (Late st Contact Info) Description 12/05/2022 Transcribe Orders [facility]'s [address] [address] Unknown, Unknown, Social History Tobacco Use Types Packs/Day Years Used Date Smoking Tobacco: Former Cigarettes Comments Unknown Sex and Gender Information Value [...] 4:30 PM EDT Telemedicine - audio only [facility] Rheumatology at [address] [address] Catherine Moraes MD, PhD [address] [place] [address] [email or web address], [facility] documented as of this encounter Visit Diagnoses Not on filedocumented in this encounter Care Teams Supervisory Examiner Relationship Specialty Start Date End Date Benny Gamez MD [address] [place] [address] [place] [address] PCP - General Internal Medicine 11/11/22 documented as of this encounter Additional Source Comments The information contained in this document represents components of the legal health record. It is not the complete legal health record.[facility]
--- OUTSIDE RECORDS SUMMARY | 2025-08-29 11:19 | XMS_ITS | Clinical Summary ---
Author Organization [facility] Address [address] [facility] [address] [place] [address] Phone Care Team Providers Care Jewelry Jobber Name Role Phone Benny Gamez MD Primary Care Provider Allergies Active Allergy Reactions Criticality Noted Date Comments Sulfa (Sulfonamide Antibiotics) Rash,Shortness Of Breath,Swelling High 04/27/1984 Medications levothyroxine (SYNTHROID,LEVOT HROID) 25 MCG tablet Take 25 mcg by mouth daily. Active Ca cit-D3-mag#11-zi nj-auhy-lwo-bor (CALTRATE 600+D) 600 mg calcium- 800 unit-50 mg Tab Take 1 tablet by mouth daily. Active Encounters Date Type Department Care Team Description 08/04/2025 8:48 AM EDT - 08/04/2025 11:59 PM EDT Hospital Encounter [facility] [address] [place] [address] Catherine Moraes MD, PhD Discharge Disposition: Home or Self Care 07/18/2025 11:30 AM EDT Telemedicine - audio only [facility] Rheumatology at [address] [address] Catherine Moraes MD, PhD Age-related osteoporosis without current pathological fracture (Primary Dx); Paget's bone disease; Other hyperlipidemia 07/18/2025 Telephone [facility] Orthopedics at [address] [address] Olman Luna from Last 3 Months Social History Tobacco Use Types Packs/Day Years Used Date Smoking Tobacco: Never Smokeless Tobacco: Never Tobacco Cessation:Counseling Given: Not Answered Alcohol Use Standard Drinks/Week Comments Yes 0 [...] Orientation Straight 11/11/2022 3: 46 PM EST Last Filed Vital Signs Vital Sign Reading Time Taken Comments Blood Pressure 142/60 07/06/2024 8:30 AM EDT Pulse 78 02/18/2024 10:15 AM EDT Temperature 36.7 C (98.1 F) 07/06/2024 8:30 AM EDT Respiratory Rate 18 02/18/2024 8:44 AM EDT Oxygen Saturation 100% 07/06/2024 8:30 AM EDT Inhaled Oxygen Concentration - - Weight 61.2 kg (135 lb) 08/31/2024 9:12 AM EDT Height 160 cm (5' 3 ) 08/31/2024 9:12 AM EDT Body Mass Index 23.91 08/31/2024 9:12 AM EDT Plan of Treatment Upcoming Encounters Date Type Department Care Team (Latest Contact Info) Description 08/21/2026 4:30 PM EDT Telemedicine - audio only [facility] Rheumatology at [address] [address] Catherine Moraes MD, PhD [address] [place] [address] [email or web address] Health Maintenance Due Date Last Done Comments Adult Td,Tdap Booster 1957 HEPATITIS C SCREENING 1975 MAMMOGRAM 1997 COLOGUARD 2002 COLONOSCOPY 2002 COLORECTAL CANCER SCREENING 2002 FIT TEST 2002 FOBT 2002 SIGMOIDOSCOPY 2002 VIRTUAL COLONOSCOPY 2002 PNEUMOCOCCAL VACCINES (50+ years) (1 of 1 - PCV) 2007 DEPRESSION SCREENING 04/27/2024 04/27/2023 TSH LEVEL 04/30/2024 04/30/2023 INFLUENZA VACCINE (#1) 2025 2, 09/24/2021, 08/28/2020, Additional history exists COVID-19 VACCINE ( season) 2025 11/18/2021, 12/07/2020, 11/16/2020 LIPID PANEL 08/04/2030 08/04/2025 RSV VACCINE (1 - 1-dose 75+ series) 2032 ZOSTER VACCINES Completed 03/07/2022, 11/11/2021 SMOKING STATUS SCREENING (Once After 26 Yrs) Completed 07/06/2024 OSTEOPOROSIS SCREENING INITIAL (ONE-TIME) Completed 07/18/2025 HEPATITIS A VACCINES Aged Out No long er eligible based on patient's age to complete this topic HIB VACCINES Aged Out No longer eligi ble based on patient's age to complete this topic MENINGOCOCCAL VACCINES (ACWY) Aged Out No longer eligible based on patient's age to complete this topic MENINGOCOCCAL VACCINES (B) Aged Out N o longer eligible based on patient's age to complete this topic Medical Devices Implanted Type Area Operations Leader Device Identifier Shelf Expiration Date Model / Serial / Lot Probe Ophthalmology Craw D Ss Silicone Tubing Intubation Bicanaliculus [place] Tip Bx/3ea - [id number] Implanted:Qty: 1 on 02/18/2024 by Misty Stewart MD, PhD at [facility] [place] Right: Nose [facility] [employer] 09/28/2028 [id number] / / [id number] Description:Lacrimal duct ri ght Procedures Procedure Name Priority Date/Time Associated Diagnosis Comments 25-OH VITAMIN D Routine 08/04/2025 9:44 AM EDT Age-related osteoporosis without current pathological fracture CBC Routine 08/04/2025 9:44 AM EDT Age-related osteoporosis without current pathological fracture COMPREHENSIVE METABOLIC PANEL Routine 08/04/2025 9:44 AM EDT Age-related osteoporosis without current pathological fracture LIPID PANEL Routine 08/04/2025 9:44 AM EDT Age-related osteoporosis without current pathological fracture Other hyperlipidemia BD DXA MONITORING Routine 07/18/2025 11: 59 AM EDT Age-related osteoporosis without current pathological fracture TSH Routine 04/30/2023 12:03 PM EDT Hypothyroidism, unspecified type from Last 3 Months or Most Recently Relevant to Health Maintenance Results * (ABNORMAL) Comprehensive metabolic panel (08/04/2025 9:44 AM EDT) SODIUM 136 133 - 146 mmol/L [facility] POTASSIUM 4.7 3.3 - 5.1 mmol/L [facility] CHLORIDE 100 96 - 108 mmol/L [facility] CO2 28 21 - 35 mmol/L [facility] BUN 12 6 - 19 mg/dL [facility] CREATININE 0.50 0.5 - 1.5 mg/dL [facility] GLUCOSE 100(H) 70 - 99 mg/dL [facility] ALBUMIN 4.7 3.9 - 4.8 g/dL [facility] TOTAL PROTEIN 7.7 6.5 - 8.0 g/dL [facility] CALCIUM 9.6 8.4 - 10.3 mg/dL [facility] ALKALINE PHOSPHATASE 50 39 - 117 U/L [facility] TOTAL BILIRUBIN 0.6 0.0 - 1.2 mg/dL [facility] AST 18 0 - 37 U/L [facility] ALT 11 0 - 40 U/L [facility] GLOBULIN 3.0 1 - 4.8 g/dL [facility] EGFR 102 >59 mL/min/1.7 3m2 [facility] Comment:Estimated glomerular filtration rate calculated using the CKD-EPI refit equation. ANION GAP 13 10 - 20 mmol/L [facility] Blood 08/04/2025 9:44 AM EDT 08/04/2025 9:52 AM EDT Catherine Moraes MD, PhD LAB BLOOD ORDERABLES Fin al Result Performing Organization Address City/[facility]/ZIP Co de Phone Number [address] [address] * 25-OH vitamin D (08/04/2025 9:44 AM EDT) 25 OH VIT D (TOTAL) 32 30 - 60 ng/mL [facility] Blood 08/04/2025 9:44 AM EDT 08/04/2025 9:52 AM EDT us Catherine Moraes MD, PhD LAB BLOOD ORDERABLES Fin al Result Performing Organization Address City/[facility]/ZIP Co de Phone Number [address] [address] * CBC (08/04/2025 9:44 AM EDT) WBC 4.55 4.00 - 11.00 K/uL [facility] RBC 4.14 4.00 - 5.20 M/uL [facility] HGB 12.6 12.0 - 16.0 g/dL [facility] HCT 38.5 36.0 - 46.0 % [facility] PLT 213 150 - 450 K/uL [facility] MCV 93.0 80.0 - 100.0 fL [facility] MCH 30.4 27.0 - 31.0 pg [facility] MCHC 32.7 32.0 - 36.0 g/dL [facility] RDW 13.2 11.5 - 14.5 % [facility] MPV 9.7 8.4 - 12.0 fL [facility] NRBC 0.00 0.00 /100 WBCs [facility] ABSOLUTE NRBC 0.00 0.00 K/uL [facility] Blood 08/04/2025 9:44 AM EDT 08/04/2025 9:52 AM EDT Catherine Moraes MD, PhD LAB BLOOD ORDERABLES Fin al Result Performing Organization Address City/[facility] Co de Phone Number [address] [address] * (ABNORMAL) Lipid panel (08/04/2025 9:44 AM EDT) HDL 85 mg/dL [facility] Comment: Interpretation <40 mg/dL: Low HDL cholesterol (major risk factor for CHD) Greater than or equal to 60 mg/dL: High HDL cholesterol ( negative risk factor for CHD) HDL - cholesterol is affected by a number of factors, e.g. smoking, excerise, hormones, sex and age. CHOLESTEROL 244(H) 0 - 240 mg/dL [facility] TRIGLYCERIDES 72 30 - 160 mg/dL [facility] LDL 145(H) 50 - 129 mg/dL [facility] Comment: LDL levels in terms of risk for coronary heart disease: <100 mg/dL: Optimal 100-129 mg/dL: Near or above optimal 130-159 mg/dL: Borderline high 160-189 mg/dL: High >190 mg/dL: Very High CARDIAC RISK RATIO 2.9(L) 3.3 - 4.4 C [facility] Blood 08/04/2025 9:44 AM EDT 08/04/2025 9:52 AM EDT Catherine Moraes MD, PhD LAB BLOOD ORDERABLES Fin al Result Performing Organization Address City/[facility]/ZIP Co de Phone Number [address] [address] * TSH (04/30/2023 12:03 PM EDT) TSH 2.62 0.50 - 5.70 uIU/mL [facility] Blood 04/30/2023 12:0 3 PM EDT 04/30/2023 1:44 PM EDT us Lexy Styles MD, PhD LAB BLOOD ORDERA BLES Final Result [facility] [address] [place] [address] from Last 3 Months or Most Recently Relevant to Health Maintenance Insurance [employer] MEDEX SUPPLEMENT MEDICARE PART A & B [employer] MEDEX SUPPLEMENT MEDICARE PART A & B [employer] SUPPLEMENT MEDICARE PART A & B [employer] SUPPLEMENT MEDICARE PART A & B [employer] MEDEX SUPPLEMENT MEDICARE PART A & B NAZARETH CROSS MEDEX SUPPLEMENT MEDICARE PART A & B Care Teams Jewelry Jobber Relationship Specialty Start Date End Date Benny Gamez MD [address] [place] [address] [place] [address] PCP - General Internal Medicine 11/11/22 Additional Source Comments The information contained in this document represents components of the legal health record. It is not the complete legal health record.[facility]
--- OUTSIDE RECORDS SUMMARY | 2025-08-29 11:19 | XMS_ITS | Encounter Summary ---
Author Organization [facility] Address [address] [facility] [address] [place] [address] Phone Care Team Providers Care Drafter Refrigeration Name Role Phone Benny Gamez MD Primary Care Provider Encounter Details Date Type Department Care Team (Late st Contact Info) Description 02/18/2024 Procedure Pass [facility] DEPT [address] [place] [address] Social History Tobacco Use Types Packs/Day Years Used Date Smoking Tobacco: Former Cigarettes Smokeless Tobacco: Never Alcohol Use Standard Drinks/Week [...] 4:30 PM EDT Telemedicine - audio only [facility] Rheumatology at [address] [address] Catherine Moraes MD, PhD [address] [place] [address] [email or web address] documented as of this encounter Visit Diagnoses Not on filedocumented in this encounter Care Teams Drafter Refrigeration Relationship Specialty Start Date End Date Benny Gamez MD [address] [place] [address] Dr G[place] [address] [place] [address] PCP - General Internal Medicine 11/11/22 documented as of this encounter Additional Source Comments The information contained in this document represents components of the legal health record. It is not the complete legal health record.[facility]
== END 2025-08-29 11:55 | disposition home or self-care (01) ==
LOC: HO.HMCHD 10:14
PROVIDERS: PCP Internal Medicine; Visit Provider Physician Assistant
DX: E03.9 Hypothyroidism, unspecified (principal); M88.9 Osteitis deformans of unspecified bone; M81.0 Age-related osteoporosis without current pathological fracture; E78.5 Hyperlipidemia, unspecified

== ENCOUNTER → 2025-08-29 10:14 | Outpatient (BNVA) | payer MEDICARE, SELFPAY | PROVIDERS: PCP Internal Medicine; Visit Provider Physician Assistant | DX: Z76.89 Persons encountering health services in other specified circumstances (principal); M88.9 Osteitis deformans of unspecified bone; E03.9 Hypothyroidism, unspecified; M81.0 Age-related osteoporosis without current pathological fracture; E78.5 Hyperlipidemia, unspecified; R00.2 Palpitations; Z85.3 Personal history of malignant neoplasm of breast; Z13.31 Encounter for screening for depression; Z13.39 Encounter for screening examination for other mental health and behavioral disorders | CPT/HCPCS: 96127; 99212 ==